=== PATIENT | male | born 1945 | race Caucasian/White ===

== ENCOUNTER 2019-05-02 05:41 | Emergency (ER) | payer MEDICARE, OTHER ==
[~2019-05-02] VITALS: Ht 180.3 cm; Wt 113.6 kg
[2019-05-02] MEDS ORDERED: VITAD1000T PO (05:50)
[2019-05-02] MEDS ORDERED: FINA5TAB2 PO (05:50)
[2019-05-02] MEDS ORDERED: ASPI81CH33 PO (05:50)
[2019-05-02] MEDS ORDERED: GLIP10TA PO (05:50)
[2019-05-02] MEDS ORDERED: ATEN50TA2 PO (05:50)
[2019-05-02] MEDS ORDERED: AMLO10TA5 PO (05:50)
[2019-05-02] MEDS ORDERED: AMIT-255 PO (05:50)
[2019-05-02] MEDS ORDERED: METF500T13 PO (05:50)
[2019-05-02] MEDS ORDERED: ATOR1TAB19 PO (05:50)
[2019-05-02] MEDS ORDERED: OMEP10CASR PO (05:50)
[2019-05-02] MEDS ORDERED: HYDR12.55 PO (05:50)
[2019-05-02 06:58] LABS: HEMATOCRIT 42.1 % (42.0-52.0); HEMOGLOBIN 14.8 g/dl (13.5-17.5); MEAN CORPUSCULAR HGB CONC 35.2 g/dl (32.0-36.5); MEAN CORPUSCULAR VOLUME 88.1 fl (80.0-96.0); PLATELET COUNT, AUTOMATED 141 10^3/uL (150-450); RED BLOOD COUNT 4.78 10^6/uL (4.30-6.10); WHITE BLOOD COUNT 5.3 10^3/uL (4.0-10.0)
--- NOTE | 2019-05-02 07:28 | REPVR ---
EXAM: CT Head Without Contrast EXAM DATE/TIME: 05/02/2019 6:53 AM CLINICAL HISTORY: 73 years old, male; Altered mental status/memory loss; Additional info: Altered mental, RO tumor TECHNIQUE: Imaging protocol: Computed tomography images of the head without contrast. Radiation optimization: All CT scans at this facility use at least one of these dose optimization techniques: automated exposure control; mA and/or kV adjustment per patient size (includes targeted exams where dose is matched to clinical indication); or iterative reconstruction. COMPARISON: No relevant prior studies available. FINDINGS: Brain: A focal CSF density extra-axial structure in the left middle cranial fossa is probably an arachnoid cyst, measuring 4.5 x 2.4 cm. There is mild mass effect upon the anterior aspect of the left temporal lobe but no associated parenchymal edema. There is mild, diffuse parenchymal volume loss. The cortical/white matter interfaces are preserved throughout the brain. Ventricles: The ventricular system demonstrates mild diffuse compensatory enlargement. Bones/joints: No acute fractures of the skull are identified. Sinuses: The visualized paranasal sinuses are clear. Mastoid air cells: The visualized mastoid air cells are clear. Soft tissues: Unremarkable. Vasculature: Atherosclerotic calcifications are seen in the cerebral arteries at the skull base. IMPRESSION: 1. No evidence of acute infarct or hemorrhage. 2. CSF density structure in the left middle cranial fossa, likely an incidental arachnoid cyst. Electronically signed by: Vivian Woodard On 05/02/2019 07:28:31 AM
[2019-05-02 07:46] LABS: ALBUMIN 3.2 GM/DL (3.2-5.2); BILIRUBIN,DIRECT 0.3 MG/DL (0.0-0.2); BILIRUBIN,TOTAL 1.1 MG/DL (0.2-1.0); TOTAL PROTEIN 7.9 GM/DL (6.4-8.2)
[2019-05-02 07:47] LABS: ACETAMINOPHEN LEVEL < 2.0 UG/ML (10.0-30.0); ALBUMIN 3.2 GM/DL (3.2-5.2); ALT/SGPT 29 U/L (12-78); BILIRUBIN,DIRECT 0.3 MG/DL (0.0-0.2); BILIRUBIN,TOTAL 1.1 MG/DL (0.2-1.0); BLOOD UREA NITROGEN 16 MG/DL (7-18); CALCIUM LEVEL 8.8 MG/DL (8.8-10.2); CARBON DIOXIDE LEVEL 28 MEQ/L (21-32); CHLORIDE LEVEL 104 MEQ/L (98-107); CK-MB VALUE MASS 1.7 NG/ML (<3.6); CPK CREATINE PHOSPHOKINASE 96 U/L (39-308); CREATININE FOR GFR 1.04 MG/DL (0.70-1.30); ETHYL ALCOHOL (ETHANOL) < 0.003 % (0.000-0.010); GLOMERULAR FILTRATION RATE > 60.0 (>42); GLUCOSE, FASTING 152 MG/DL (70-100); MB/CK RELATIVE INDEX 1.77 (< OR =4); POTASSIUM SERUM 3.6 MEQ/L (3.5-5.1); SALICYLATE LEVEL < 1.7 MG/DL (5.0-30.0); SODIUM LEVEL 140 MEQ/L (136-145); TOTAL PROTEIN 7.1 GM/DL (6.4-8.2); TROPONIN I < 0.02 NG/ML (< 0.10)
--- NOTE | 2019-05-02 08:09 | REP ---
Chest x-ray: Two views. History: Chest discomfort. Comparison chest x-ray: September 29, 2011. Findings: The lungs are symmetrically aerated and clear. Moderate cardiac enlargement is again noted unchanged. Pleural angles are sharp. No infiltrate is seen. Pulmonary vasculature is not increased. Impression: Cardiomegaly. Otherwise no acute disease. Electronically Signed by Issa Woods MD 05/02/2019 08:00 A
[2019-05-02 09:31] VITALS: BP 122/63
[2019-05-02 09:58] LABS: AMPHETAMINES LEVEL URINE NEGATIVE (NEGATIVE); BARBITURATES URINE NEGATIVE (NEGATIVE); BENZODIAZEPINES URINE NEGATIVE (NEGATIVE); CANNABINOIDS URINE NEGATIVE (NEGATIVE); COCAINE METABOLITE URINE NEGATIVE (NEGATIVE); METHADONE URINE NEGATIVE (NEGATIVE); OPIATES URINE NEGATIVE (NEGATIVE); PHENCYCLIDINE URINE NEGATIVE (NEGATIVE)
--- NOTE | 2019-05-02 20:39 | ECGEPIP ---
[facility] - ED Test Date: 2019-05-02 Pat Name: NIKUNJ JJ Department: Room: - Gender: Male Manager Enrollment: marisol : 1945 Requested By: ARMANDO Hendrix PA-C Order Number: [id number] Reading MD: Colin Arriaga Measurements Intervals [place] Rate: 70 P: 14 ID: [id number] QRS: -39 QRSD: 119 T: 6 QT: 424 QTc: 458 Interpretive Statements SINUS RHYTHM LEFT AXIS DEVIATION PATTERN CONSISTENT WITH PULMONARY DISEASE MODERATE INTRAVENTRICULAR CONDUCTION DELAY BENIGN EARLY REPOLARIZATION NO PRIORS FOR COMPARISON Electronically Signed on 05-02-2019 20:39:29 EDT by Colin Arriaga
--- NOTE | 2019-05-07 20:29 | ED PDOC ---
Post-Departure Follow-Up dr amy campbell faaxed formal report of ct head for fu Katelyn Carranza MD May 07, 2019 20:29
== END 2019-05-02 10:30 | disposition home or self-care (01) ==
LOC: M ED 05:41
DX: F51.5 Nightmare disorder (principal); R44.1 Visual hallucinations; R26.81 Unsteadiness on feet; I45.4 Nonspecific intraventricular block; I51.7 Cardiomegaly; E11.9 Type 2 diabetes mellitus without complications; I25.2 Old myocardial infarction; E78.5 Hyperlipidemia, unspecified; I10 Essential (primary) hypertension; R00.1 Bradycardia, unspecified; K21.9 Gastro-esophageal reflux disease without esophagitis; J44.9 Chronic obstructive pulmonary disease, unspecified; F32.9 Major depressive disorder, single episode, unspecified; F41.0 Panic disorder [episodic paroxysmal anxiety]; G47.30 Sleep apnea, unspecified; Z87.820 Personal history of traumatic brain injury; Z87.891 Personal history of nicotine dependence; Z82.49 Family history of ischemic heart disease and other diseases of the circulatory system; Z79.82 Long term (current) use of aspirin; Z79.84 Long term (current) use of oral hypoglycemic drugs; Z79.899 Other long term (current) drug therapy; Z88.2 Allergy status to sulfonamides
CPT/HCPCS: 70450; 71046; 80048; 80076; 80307; 81001; 82550; 82553; 83690; 84443; 84484; 85027; 93005; 99284; G0480

== ENCOUNTER → 2019-05-03 | Outpatient (CLI) | payer MEDICARE, OTHER ==
[~2019-05-03] MED LIST: AMIT-255 PO; AMLO10TA5 PO; ASPI81CH33 PO; ATEN50TA2 PO; ATOR1TAB19 PO; FINA5TAB2 PO; GLIP10TA PO; HYDR12.55 PO; METF500T13 PO; OMEP10CASR PO; VITAD1000T PO
[2019-05-03 13:46] LABS: RHEUMATOID FACTOR QUANT 75.3 IU/ML (<15.0)
[2019-05-03 13:48] LABS: VITAMIN B12 LEVEL 317 PG/ML
[2019-05-03 13:49] LABS: FOLATE 6.9 NG/ML
[2019-05-03 14:22] LABS: HEMOGLOBIN A1c 7.1 %
[2019-05-07 08:06] LABS: ANCA-ATYPICAL <1:20 titer (Neg:<1:20); ANTI DS-DNA AB <1:10 titer (.); ANTINUCLEAR ANTIBODIES DIRECT Negative (Negative); CERULOPLASMIN 18.3 mg/dL (16.0-31.0); COPPER PLASMA 72 ug/dL (72-166); CYTOPLASMIC NEUTROP AB ANCA-C <1:20 titer (Neg:<1:20); LEAD BLOOD ADULT <1 ug/dL (0-4); Lyme Disease IgG/IgM Antibodie <0.91 ISR (0.00-0.90); Lyme Disease IgM Ab Quantitati <0.80 index (0.00-0.79); MERCURY LEVEL None Detected ug/L (0.0-14.9); PERINUCLEAR AB ANCA-P <1:20 titer (Neg:<1:20); SJOGREN'S ANTI SS-A <0.2 AI (0.0-0.9); SJOGREN'S ANTI SS-B <0.2 AI (0.0-0.9); VITAMIN B6,PYRIDOXAL PHOSPHATE 2.6 ug/L (5.3-46.7); VITAMIN E(ALPHA TOCOPHEROL) 8.4 mg/L (9.0-29.0); VITAMIN E(GAMMA TOCOPHEROL) 1.5 mg/L (0.5-4.9)
[2019-05-10 10:20] LABS: DRVV SCREEN 40.6 SEC
== END ==
LOC: M WUC 10:41
PROVIDERS: ATTEND Psychiatry & Neurology Neurology
DX: M79.2 Neuralgia and neuritis, unspecified (principal)

== ENCOUNTER 2019-05-14 07:40 | Emergency (ER) | payer MEDICARE, OTHER ==
[~2019-05-14] VITALS: Ht 180.3 cm; Wt 111.4 kg
[~2019-05-14 07:40] MED LIST changes: +CHOL100029 PO; -VITAD1000T PO
[2019-05-14] MEDS ORDERED: ATOR40TA75 PO (07:52)
[2019-05-14 14:39] VITALS: BP 130/85
--- NOTE | 2019-05-14 15:46 | REPVR ---
EXAM: MR Head Without and With Contrast EXAM DATE/TIME: 05/14/2019 2:28 PM CLINICAL HISTORY: 73 years old, male; Abnormal findings; Abnormal radiologic findings of head/skull; Intracranial mass / space-occupying lesion; Patient HX: Patient did not receive contrast nor more than the t1 sequence due to becoming claustrophobic and refusing further scanning. ; Additional info: Left temporal arachnoid cyst vs tumor TECHNIQUE: Imaging protocol: MR of the head without and with intravenous contrast. COMPARISON: CT Head without contrast 05/02/2019 6:52 AM FINDINGS: Brain: An elliptical low T1 signal arachnoid cyst is observed anterior to the left temporal lobe measuring 22 x 44 mm on axial image 12 similar to the comparison CT. No acute intracranial process is identified on this limited T1 axial survey. Ventricles: Normal. No ventriculomegaly. Bones/joints: Unremarkable. Soft tissues: Normal. Sinuses: Normal as visualized. No acute sinusitis. Mastoid air cells: Normal as visualized. No mastoid effusion. Orbits: Unremarkable. IMPRESSION: 1. An elliptical low T1 signal arachnoid cyst is observed anterior to the left temporal lobe measuring 22 x 44 mm on axial image 12 similar to the comparison CT. 2. No acute intracranial process is identified on this limited T1 axial survey. Electronically signed by: Kevin Bridges On 05/14/2019 15:45:58 PM
== END 2019-05-14 14:42 | disposition home or self-care (01) ==
LOC: M ED 07:40
DX: R29.818 Other symptoms and signs involving the nervous system (principal); G93.0 Cerebral cysts; Z91.81 History of falling; E11.9 Type 2 diabetes mellitus without complications; I10 Essential (primary) hypertension; I25.2 Old myocardial infarction; E78.00 Pure hypercholesterolemia, unspecified; G47.33 Obstructive sleep apnea (adult) (pediatric); F32.9 Major depressive disorder, single episode, unspecified; F41.9 Anxiety disorder, unspecified; Z95.5 Presence of coronary angioplasty implant and graft; Z87.891 Personal history of nicotine dependence; Z88.2 Allergy status to sulfonamides; Z79.899 Other long term (current) drug therapy; Z79.84 Long term (current) use of oral hypoglycemic drugs; Z79.82 Long term (current) use of aspirin

== ENCOUNTER 2019-08-12 12:54 | Inpatient (IN) | payer MEDICARE, OTHER ==
[~2019-08-12] VITALS: Ht 182.9 cm; Wt 116.2 kg
[~2019-08-12 12:54] MED LIST changes: +ATOR40TA75 PO
[2019-08-12] MEDS ORDERED: FURO20TA2 PO (13:28)
[2019-08-12] MEDS ORDERED: GABA-843 PO (13:28)
[2019-08-12 14:25] LABS: BASO % 0.6 % (0.0-1.0); EOS % 0.4 % (0.0-3.0); HEMATOCRIT 41.6 % (42.0-52.0); HEMOGLOBIN 14.3 g/dl (13.5-17.5); LYMPH # 0.8 10^3/uL (1.5-5.0); LYMPH % 15.8 % (24.0-44.0); MEAN CORPUSCULAR HGB CONC 34.4 g/dl (32.0-36.5); MEAN CORPUSCULAR VOLUME 87.2 fl (80.0-96.0); MONO # 0.3 10^3/uL (0.0-0.8); MONO % 6.2 % (0.0-5.0); NEUTROPHILS # 4.1 10^3/uL (1.5-8.5); NEUTROPHILS % 76.8 % (36.0-66.0); PLATELET COUNT, AUTOMATED 154 10^3/uL (150-450); RED BLOOD COUNT 4.77 10^6/uL (4.30-6.10); WHITE BLOOD COUNT 5.3 10^3/uL (4.0-10.0)
[2019-08-12 14:55] LABS: ALBUMIN 3.4 GM/DL (3.2-5.2); ALT/SGPT 39 U/L (12-78); BILIRUBIN,DIRECT 0.3 MG/DL (0.0-0.2); BILIRUBIN,TOTAL 1.4 MG/DL (0.2-1.0); BLOOD UREA NITROGEN 17 MG/DL (7-18); CALCIUM LEVEL 9.5 MG/DL (8.8-10.2); CARBON DIOXIDE LEVEL 27 MEQ/L (21-32); CHLORIDE LEVEL 104 MEQ/L (98-107); CPK CREATINE PHOSPHOKINASE 159 U/L (39-308); CREATININE FOR GFR 1.15 MG/DL (0.70-1.30); GLOMERULAR FILTRATION RATE > 60.0 (>42); GLUCOSE, FASTING 187 MG/DL (70-100); MB/CK RELATIVE INDEX 1.26 (< OR =4); POTASSIUM SERUM 3.1 MEQ/L (3.5-5.1); SODIUM LEVEL 139 MEQ/L (136-145); TOTAL PROTEIN 8.2 GM/DL (6.4-8.2); TROPONIN I < 0.02 NG/ML (< 0.10)
--- NOTE | 2019-08-12 15:05 | REP ---
CT brain: 08/12/2019. Indication: Stroke. Comparison: MRI brain dated 05/14/2019. Technique: Unenhanced axial CT images of the brain were obtained from skull base to vertex. Findings: There is no acute intracranial hemorrhage, acute cortical infarction or hydrocephalous. Left middle cranial fossa arachnoid cyst remains stable. There is no acute calvarial fracture. The visualized paranasal sinuses/mastoid air cells are clear. Impression: No acute intracranial process. Stable left middle cranial fossa arachnoid cyst. Electronically Signed by Manuelito Hinson DO 08/12/2019 02:56 P
[2019-08-12] MEDS ORDERED: METF-791 PO (17:24)
[2019-08-12] MEDS ORDERED: FINA5TAB2 PO (17:24)
[2019-08-12] MEDS ORDERED: LANTINJ4 SC (17:24)
[2019-08-12] MEDS ORDERED: IBUP1TAB6 PO (17:24)
[2019-08-12] MEDS ORDERED: ASPI81TA26 PO (17:24)
[2019-08-12] MEDS ORDERED: OMEP20CA4 PO (17:24)
[2019-08-12] MEDS ORDERED: LORazepam 2 MG/ML VIAL (J2060) IV STA (17:30)
[2019-08-12] MEDS ORDERED: POTASSIUM CHLORIDE 10 MEQ SR TABLET PO ONE (17:45)
[2019-08-12] MEDS ORDERED: DEXTROSE 50% 50 ML SYRINGE IV PRN (17:45)
[2019-08-12] MEDS ORDERED: GLUCOSE 4 GM CHEW TABLET PO PRN (17:45)
[2019-08-12] MEDS ORDERED: GLUCAGON FOR INJ 1 MG VIAL (J1610) SC PRN (17:45)
[2019-08-12 18:41] VITALS: BP 150/70
[2019-08-12] MEDS: CLOPIDOGREL 75 MG TAB PO SCH (18:47)
[2019-08-12 20:00] VITALS: BP 146/80
--- NOTE | 2019-08-12 20:19 | REPVR ---
PROCEDURE INFORMATION: Exam: US Duplex Bilateral Extracranial Arteries Exam date and time: 08/12/2019 7:55 PM Age: 74 years old Clinical history: Other: TIA TECHNIQUE: Imaging protocol: Real-time Duplex ultrasound scan of the bilateral carotid and vertebral arteries combining guzman scale, color Doppler and spectral waveform analysis. Bilateral exam. COMPARISON: No relevant prior studies available. FINDINGS: Right common carotid artery: Unremarkable. No occlusion or stenosis. Waveforms are normal. Right internal carotid artery: Mild mixed calcific and noncalcific atherosclerotic changes. No occlusion or stenosis. Waveforms are normal. Right ICA/CCA ratio: Within normal limits. 0.4 Right external carotid artery: No stenosis in the origin. Right vertebral artery: Not visualized. Left common carotid artery: Unremarkable. No occlusion or stenosis. Waveforms are normal. Left internal carotid artery: Mild mixed calcific and noncalcific atherosclerotic changes. No occlusion or stenosis. Waveforms are normal. Left ICA/CCA ratio: Within normal limits. 0.98 Left external carotid artery: No stenosis in the origin. Left vertebral artery: Unremarkable. Antegrade flow. IMPRESSION: Mild bilateral stenosis in the proximal ICA's using SRU criteria. Nonvisualized right vertebral artery. Normal antegrade flow on the left. COMMENT: Carotid Stenosis Reference using SRU criteria: Mild: less than 50% stenosis. ICA PSV is less than 125 cm/second and plaque or intimal thickening is visible. Moderate: 50-69% stenosis. ICA PSV is 125 to 230 cm/second and plaque is visible. Severe: 70-94% stenosis. ICA PSV is more than 230 cm/second and visible plaque and lumen narrowing are seen. Near occlusion: 95-99% stenosis. ICA PSV is variable and significant plaque and luminal narrowing are seen. Occluded: 100% stenosis. No flow identified. Electronically signed by: Rivas Cho On 08/12/2019 20:19:45 PM
[2019-08-12] MEDS: AMITRIPTYLINE 25 MG TAB PO SCH (20:53)
[2019-08-12] MEDS: ASPIRIN 81 MG ENTERIC TAB PO SCH (20:53)
[2019-08-12] MEDS: OMEPRAZOLE 20 MG CAP PO SCH (20:54)
[2019-08-12] MEDS: ATORVASTATIN 20 MG TAB PO SCH (20:54)
[2019-08-12] MEDS: FUROSEMIDE 20 MG TAB PO SCH (20:54)
[2019-08-12] MEDS: amLODIPine 5 MG TAB PO SCH (20:54)
[2019-08-12] MEDS: ATENOLOL 50 MG TAB PO SCH (20:55)
[2019-08-12] MEDS: FINASTERIDE 5 MG TAB PO SCH (20:55)
[2019-08-12] MEDS: HumaLOG INSULIN (NovoLOG) PER UNIT SC SCH (20:55)
[2019-08-12] MEDS: VITAMIN D 1,000 INTERNATIONAL UNITS TABLET PO SCH (20:55)
[2019-08-12] MEDS: LEVEMIR (INSULIN DETEMIR) 1 UNITS/0.01ML SC SCH (20:56)
--- NOTE | 2019-08-12 20:57 | HPE ---
DATE OF ADMISSION: 08/12/2019 PRIMARY CARE PROVIDER: [facility] PRINCIPAL DIAGNOSIS: Transient ischemic attack (TIA) versus stroke. HISTORY: Helder Garcia is a 74-year-old right-handed male with multiple vascular risk factors. He has been "weak in his knees" for several days, having trouble ambulating, and has been increasing lower extremity edema for several months, being attended to by the ID with augmented doses of the diuretics. Today, his legs were weaker than usual. He tried to walk and his thought he was going to fall down. When he sat down, his right upper extremity became weak and he was unable to hold anything. He dropped the cup he was holding and was unable to use his hand to write his name. His speech was dysarthric. This all lasted over an hour, perhaps two hours. Symptoms resolved by the time an ambulance was called a few hours into this event. In the emergency room, he was normotensive and had only findings on neurologic examination. He is being admitted for further treatment. He has no past history of transient ischemic attack (TIA) or stroke. He is on antiplatelet therapy with aspirin 81 mg daily. PAST MEDICAL HISTORY: 1. Hypertensive heart disease. 2. Vitamin D deficiency. 3. Hyperlipidemia. 4. Chronic lower extremity edema versus congestive heart failure. 5. Type 2 diabetes. 6. Gastroesophageal (GE) reflux. 7. Benign prostatic hypertrophy (BPH). PAST SURGICAL HISTORY: Bilateral knee surgery as well as surgery on the right shoulder. He also had shrapnel removed from his right leg. FAMILY HISTORY: Noncontributory. SOCIAL HISTORY: He is . He does not smoke. He does not drink alcohol but says "today I wish I did." REVIEW OF SYSTEMS: No epistaxis, rectal bleeding, urinary bleeding, headache, diplopia. No past history of transient ischemic attack (TIA) or cerebrovascular accident (CVA). PHYSICAL EXAMINATION: Blood pressure 128/69, pulse 74, 98% oxygen saturation on room air, afebrile. GENERAL APPEARANCE: Alert, conversant, in no distress. No facial droop or weakness. Pupils are equally round and reactive to light. Tympanic membranes and oropharynx benign. NECK: No masses. carotid bruits. LUNGS: Clear. HEART: Regular rate and rhythm, 1/6 systolic ejection murmur. ABDOMEN: Soft, nontender. No masses. EXTREMITIES: No clubbing or cyanosis, 1+ peripheral edema bilaterally. Pulses were palpable in both feet, 2+, equal at the carotid site. No axillary, cervical, or inguinal adenopathy. Thyroid nonpalpable. No diagnostic skin rashes. NEUROLOGIC: Alert and oriented, conversant, answer are appropriate and goal-directed. There is no strabismus. Cranial nerves II-XII are intact. Strength is slightly reduced in the right upper extremity 4+ over 5 to the triceps. He has slight weakness in his right lower extremity, dorsiflexing and plantar flexing the foot. Speech appears normal to me but the family members think it is still slightly dysarthric. He has no aphasia. No trouble naming or word finding. Sensation intact to light touch. Reflexes are symmetric and normal bilaterally. I did not test his gait. LABORATORY DATA: CT of the brain showed no bleed. Previous MRI of the brain was done on 05/14/2019 for generalized weakness. They noticed an arachnoid cyst anterior left temporal lobe, so that is a known previous finding. EKG showed no change from prior. He was in sinus rhythm. White count 5.3, hemoglobin 14.3, platelets 154. 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 IMPRESSION: 1. Transient ischemic attack (TIA) versus stroke. The patient will be admitted to a telemetry bed. We will check echocardiogram and carotid ultrasound. MRI of the brain is pending. We will augment his aspirin 81 mg daily with Plavix 75 mg daily. We will put him on telemetry to rule out a paroxysmal atrial fibrillation. We will order physical therapy. The case was discussed with multiple family members. 2. Type 2 diabetes. Hold his metformin and glipizide for now. Sliding scale insulin, fingerstick blood sugars ordered. Reduce his basal insulin in the face of enforced diabetic diet to avoid hypoglycemia. 3. Hyperlipidemia. Increase atorvastatin to 40 mg daily in the face of today's vascular event. Dietary approaches to stop hypertension (DASH) diet has been ordered. 4. Lower extremity edema. Echocardiogram ordered to check ejection fraction as well as part of the stroke workup. Continue his furosemide for now. 5. Hypertension. Continue his atenolol. Reduce dose of amlodipine to 5 mg daily to allow some permissive hypertension in the face of the current vascular event. Hold his hydrochlorothiazide for now in the face of the recent TIA/stroke. 6. Gastroesophageal reflux disease (GERD). Continue omeprazole 20 mg daily. 7. Benign prostatic hypertrophy (BPH). Continue finasteride 5 mg daily. Encourage ambulation to avoid urinary retention. 8. Hypokalemia. Supplemental potassium has been ordered. 9. Deep vein thrombosis (DVT) prophylaxis with Lovenox has been ordered.
[2019-08-13] VITALS: BP 143/81
[2019-08-13 04:00] VITALS: BP 140/70
[2019-08-13 05:39] LABS: HEMATOCRIT 36.7 % (42.0-52.0); HEMOGLOBIN 12.8 g/dl (13.5-17.5); MEAN CORPUSCULAR HEMOGLOBIN 29.9 pg (27.0-33.0); MEAN CORPUSCULAR HGB CONC 34.9 g/dl (32.0-36.5); MEAN CORPUSCULAR VOLUME 85.7 fl (80.0-96.0); PLATELET COUNT, AUTOMATED 141 10^3/uL (150-450); RED BLOOD COUNT 4.28 10^6/uL (4.30-6.10); WHITE BLOOD COUNT 5.1 10^3/uL (4.0-10.0)
[2019-08-13 06:04] LABS: BLOOD UREA NITROGEN 19 MG/DL (7-18); CALCIUM LEVEL 8.9 MG/DL (8.8-10.2); CARBON DIOXIDE LEVEL 29 MEQ/L (21-32); CHLORIDE LEVEL 107 MEQ/L (98-107); CREATININE FOR GFR 0.98 MG/DL (0.70-1.30); GLOMERULAR FILTRATION RATE > 60.0 (>42); GLUCOSE, FASTING 138 MG/DL (70-100); POTASSIUM SERUM 3.2 MEQ/L (3.5-5.1); SODIUM LEVEL 142 MEQ/L (136-145)
--- NOTE | 2019-08-13 06:38 | ECGEPIP ---
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
[2019-08-13 08:00] VITALS: BP 134/71
[2019-08-13] MEDS: CLOPIDOGREL 75 MG TAB PO SCH (08:25)
[2019-08-13] MEDS: POTASSIUM CHLORIDE 10 MEQ SR TABLET PO SCH ×3 (08:25→20:52)
[2019-08-13] MEDS: ENOXAPARIN 40 MG/0.4 ML SYRINGE (J1650) SC SCH (08:25)
[2019-08-13] MEDS: HumaLOG INSULIN (NovoLOG) PER UNIT SC SCH ×4 (08:26→20:02)
[2019-08-13] MEDS ORDERED: POTASSIUM CHLORIDE 10 MEQ SR TABLET PO SCH (09:00)
--- NOTE | 2019-08-13 10:50 | IPN ---
DATE: 08/13/2019 Helder is seen in the progressive care unit (PCU). His speech is back to baseline. His right upper extremity weakness is almost completely resolved. He had no headaches. No chest pain or shortness of breath, or palpitation. He has been in strict sinus rhythm overnight and his carotid ultrasound showed no stenoses. MRI scan is contingent on radiology reviewing his history of retained shrapnel, which I do not think should be a problem as he had a brain MRI on 05/14/2019. But they are still holding up the MRI for some reason. PHYSICAL EXAMINATION: Blood pressure 134/71, afebrile. Vital signs stable. Lungs: Clear. Heart: Regular rhythm. 09/26 systolic ejection murmur. Abdomen soft, nontender. No masses. No peripheral edema. Neural exam shows alert, conversant in no distress. Speech is fluent. Cranial nerves II through XII intact. Strength is back to normal in the right upper and lower extremity. LABS: CBC unremarkable. CMP unremarkable except for potassium 3.2. Carotid ultrasound showed no stenoses. IMPRESSION: 1. Transient ischemic attack (TIA) versus stroke: Waiting for MRI scan. They would not do this yesterday because he has shrapnel despite the fact he did tolerate an MRI scan 05/14/2019. Neurology has been consulted. I added Plavix 75 mg daily to his aspirin 81 mg daily yesterday. Deep venous thrombosis prophylaxis has been ordered. 2. Diabetes: He is on a reduced dose of Levemir and a sliding scale of insulin. 3. Hypertension: I have reduced his antihypertensives and blood pressure remains in the target range. 4. Lower extremity edema: Echocardiogram is pending. Ejection fraction is pending. Continue Furosemide for now. Some of that edema might have been from high dose of amlodipine he was receiving. 5. Benign prostatic hypertrophy( BPH): No sign of urinary retention. 6. Hypokalemia: Continue supplemental potassium. Case discussed extensively with the patient and his .
[2019-08-13 12:00] VITALS: BP 120/72
[2019-08-13] MEDS ORDERED: DOCUSATE SODIUM 100 MG CAP PO PRN (12:00)
[2019-08-13] MEDS ORDERED: MIRALAX *UNIT DOSE* 17GM PACKET PO PRN (12:00)
[2019-08-13] MEDS ORDERED: LORazepam 1 MG TAB PO ONE (13:45)
--- NOTE | 2019-08-13 15:31 | REPVR ---
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 COMPARISON: MRI-Brain without Contrast 05/14/2019 1:38 PM FINDINGS: Brain: There is a midline punctate focus of high signal abnormality within the splenium of the corpus callosum on the diffusion sequence consistent with an acute infarct. 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 There are scattered nonspecific foci of high signal abnormality in the guzman radiata and centrum semiovale. These are best seen on the flair images. These foci may represent areas of gliosis, demyelination, and/or chronic ischemic change. Ventricles: Normal. No ventriculomegaly. Bones/joints: Unremarkable. Soft tissues: Unremarkable. Sinuses: Normal as visualized. No acute sinusitis. Mastoid air cells: Normal as visualized. No mastoid effusion. Orbits: Unremarkable. IMPRESSION: 1. There is a midline punctate focus of high signal abnormality within the splenium of the corpus callosum on the diffusion sequence consistent with an acute infarct. 2. 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 3. There are scattered nonspecific foci of high signal abnormality in the guzman radiata and centrum semiovale. These are best seen on the flair images. These foci may represent areas of gliosis, demyelination, and/or chronic ischemic change. Electronically signed by: Jet Etienne On 08/13/2019 15:30:45 PM
--- NOTE | 2019-08-13 15:50 | REPVR ---
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 Exam focused on the arteries. 3D rendering: MIP reconstructed images were created and reviewed. COMPARISON: MRI-Brain without Contrast 05/14/2019 1:38 PM FINDINGS: Right internal carotid artery: Unremarkable. Intracranial segment is patent with no significant stenosis. No aneurysm. Right anterior cerebral artery: Unremarkable. No occlusion or significant stenosis. No aneurysm. Right middle cerebral artery: Unremarkable. No occlusion or significant stenosis. No aneurysm. Right posterior cerebral artery: Unremarkable. No occlusion or significant stenosis. No aneurysm. Right vertebral artery: The right intracranial vertebral artery is not visualized, likely a normal variant. Left internal carotid artery: Unremarkable. Intracranial segment is patent with no significant stenosis. No aneurysm. Left anterior cerebral artery: Unremarkable. No occlusion or significant stenosis. No aneurysm. Left middle cerebral artery: Unremarkable. No occlusion or significant stenosis. No aneurysm. Left posterior cerebral artery: There is a origin of the left posterior cerebral artery. Left vertebral artery: Unremarkable. No occlusion or significant stenosis. No aneurysm. Basilar artery: Unremarkable. No occlusion or significant stenosis. No aneurysm. IMPRESSION: No acute findings are identified. Please refer to contemporaneous MRI report of the brain for additional details. Electronically signed by: Jet Etienne On 08/13/2019 15:50:02 PM
[2019-08-13 16:00] VITALS: BP 120/80
[2019-08-13 20:00] VITALS: BP 156/77
[2019-08-13] MEDS: LEVEMIR (INSULIN DETEMIR) 1 UNITS/0.01ML SC SCH (20:51)
[2019-08-13] MEDS: FUROSEMIDE 20 MG TAB PO SCH (20:52)
[2019-08-13] MEDS: AMITRIPTYLINE 25 MG TAB PO SCH (20:52)
[2019-08-13] MEDS: FINASTERIDE 5 MG TAB PO SCH (20:52)
[2019-08-13] MEDS: ATORVASTATIN 20 MG TAB PO SCH (20:52)
[2019-08-13] MEDS: ASPIRIN 81 MG ENTERIC TAB PO SCH (20:52)
[2019-08-13] MEDS: amLODIPine 5 MG TAB PO SCH (20:52)
[2019-08-13] MEDS: OMEPRAZOLE 20 MG CAP PO SCH (20:53)
[2019-08-13] MEDS: VITAMIN D 1,000 INTERNATIONAL UNITS TABLET PO SCH (20:53)
[2019-08-13] MEDS: ATENOLOL 50 MG TAB PO SCH (20:53)
[2019-08-14] VITALS (7 sets, daily range): BP systolic 115–122; BP diastolic 61–70
[2019-08-14 04:47] LABS: HEMATOCRIT 36.6 % (42.0-52.0); HEMOGLOBIN 12.5 g/dl (13.5-17.5); MEAN CORPUSCULAR HGB CONC 34.2 g/dl (32.0-36.5); PLATELET COUNT, AUTOMATED 116 10^3/uL (150-450); RED BLOOD COUNT 4.16 10^6/uL (4.30-6.10); WHITE BLOOD COUNT 4.2 10^3/uL (4.0-10.0)
[2019-08-14 05:07] LABS: BLOOD UREA NITROGEN 20 MG/DL (7-18); CALCIUM LEVEL 8.7 MG/DL (8.8-10.2); CARBON DIOXIDE LEVEL 27 MEQ/L (21-32); CHLORIDE LEVEL 108 MEQ/L (98-107); CREATININE FOR GFR 0.98 MG/DL (0.70-1.30); GLOMERULAR FILTRATION RATE > 60.0 (>42); GLUCOSE, FASTING 111 MG/DL (70-100); POTASSIUM SERUM 3.8 MEQ/L (3.5-5.1); SODIUM LEVEL 141 MEQ/L (136-145)
--- NOTE | 2019-08-14 08:21 | ECHO ---
DATE OF PROCEDURE: 08/12/2019 REFERRING PHYSICIAN: Dr. Jonathon Everett INDICATION: Transient cerebral ischemia unspecified. HEIGHT: 183 cm WEIGHT: 111 kg 2D MEASUREMENTS: Ventricular septum: 1.21 cm Posterior wall: 1.19 cm Left ventricle diastole: 4.9 cm LVOT: 2.2 cm Aortic root: 3.4 cm Left atrium: 3.5 cm Inferior vena cava: 1.9 cm DOPPLER MEASUREMENTS: Aortic valve velocity: 219 cm/s LVOT velocity: 97.3 cm/s LVOT VTI: 25.2 cm No aortic regurgitation. No aortic stenosis. No mitral regurgitation. No tricuspid regurgitation. No pulmonic regurgitation. Mitral E velocity: 85.7 cm/s Mitral A velocity: 114 cm/s Mitral deceleration time: 289 ms Pulmonary acceleration time: 148 milliseconds MITRAL ANNULAR TISSUE DOPPLER: E prime septal: 7.3 cm/s E prime lateral: 6.0 cm/s DESCRIPTION: Rhythm was sinus. This was a moderately technically difficult echocardiogram. No pericardial effusion. This was a 2D, M-mode, color flow Doppler and pulse wave Doppler examination and included mitral annular tissue Doppler. CONCLUSIONS: 1. Borderline concentric left ventricular hypertrophy. Normal regional LV wall motion and wall thickening. Normal LV systolic function. Left ventricular ejection fraction 60% by visual estimate. Grade 1 LV diastolic dysfunction. 2. Moderate mitral annular calcification. No mitral stenosis. No mitral regurgitation. 3. 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 No aortic stenosis or regurgitation. 4. Moderately technical difficult echocardiogram.
[2019-08-14] MEDS: CLOPIDOGREL 75 MG TAB PO SCH (08:40)
[2019-08-14] MEDS: POTASSIUM CHLORIDE 10 MEQ SR TABLET PO SCH ×3 (08:41→21:31)
[2019-08-14] MEDS: HumaLOG INSULIN (NovoLOG) PER UNIT SC SCH ×4 (08:41→21:00)
[2019-08-14] MEDS: ENOXAPARIN 40 MG/0.4 ML SYRINGE (J1650) SC SCH (08:41)
--- NOTE | 2019-08-14 11:23 | IPN ---
DATE: 08/14/2019 Helder is seen in progressive care unit (PCU). He has had no arrhythmias. His MRI showed a lacunar stroke (educational material on lacunar stroke and a copy of the MRI report to give to his [employer] physician was given to the patient yesterday). His echocardiogram showed normal left atrial size. Ejection fraction is 60%. No significant valvular disease. Aortic sclerosis without stenosis. He was seen by neurology, awaiting their report. Physical therapy does not feel that he is ready for discharge due to leg weakness. PHYSICAL EXAMINATION: Afebrile. Vital signs stable. 118/69. He is alert, conversant, no distress. LUNGS: Clear. HEART: Regular rhythm. 6 systolic ejection murmur. ABDOMEN: Soft, nontender. No masses. EXTREMITIES: No peripheral edema. Normal strength in the upper extremities. Normal strength in the lower extremities. LABORATORIES: CBC unremarkable. Chem profile unremarkable. Blood sugars have been normal. IMPRESSION AND PLAN: 1. Lacunar stroke. Information has been given to the patient. He is on Plavix now, as well as aspirin. His blood pressure remains well controlled on atenolol 50 mg daily and reduced dose of amlodipine 5 mg daily. Aspirin 81 mg daily and Plavix 75 mg daily. Physical therapy (PT) has been ordered. He will be discharged once he is cleared by physical therapy (PT), hopefully that will be tomorrow. 2. Hyperlipidemia. Lipitor is increased to 40 mg daily upon admission. We will continue this dose in the face of the recent stroke, though it was a lacunar stroke, which falls outside of the AHA/ACC hyperlipidemia guidelines. 3. Diabetes. He is on a reduced dose of Detemir and his oral agents have been held. We will restart his metformin today. 5. Benign prostatic hypertrophy (BPH). No sign of urinary retention. 6. Lower extremity edema. Ejection fraction is normal. He is on furosemide. Some of the edema is probably from the high dose amlodipine he was receiving. 7. Hypokalemia. We are finally making some progress with potassium, it is up to normal range on oral replacement.
--- NOTE | 2019-08-14 18:40 | CR ---
DATE OF CONSULTATION: 08/14/2019 REFERRING PROVIDER: Jonathon Everett MD Helder Garcia was seen in consultation for suspicion of transient ischemic attack (TIA) versus stroke. HISTORY OF PRESENT ILLNESS: The patient is a 74-year-old right-handed male with past medical history significant for hypertension, hyperlipidemia, type 2 diabetes with symptoms of sudden weakness of the right arm, right leg and slurring of speech, difficulty speaking lasting approximately 1 to 2 hours. The patient had a fall as a result of the symptoms. He normally has been having some difficulty with unsteady gait over the last 3 to 4 months it seems. He has longstanding history of low back pain. He has peripheral neuropathy symptoms and has had lumbar pain with radicular pain to his left leg more than right. The patient did have a head CT which was negative. MRI of the brain reveals what has been read in documentation as an acute stroke of the posterior corpus callosal. The patient's imaging shows hyperintensity and DWI sequences; however, on ADC mapping there is no correlate hypointensity. This raises the suspicion of possible subacute stroke. The patient either way was on aspirin 81 mg daily before the admission and was placed on Plavix and aspirin combination. MR angiogram of the brain does not reveal any large vessel occlusion or stenosis. The patient should be switched to Plavix only. He should maintain a statin therapy and optimizing his diabetes and hypertension, hyperlipidemia. Physical therapy (PT) and occupational therapy (OT) evaluation can be obtained. The patient has stated that he has normal strength in his arms and legs again. He has subtle weakness in both ankle dorsiflexion, which is his baseline likely contributing towards unsteady gait. He denies any chest pain, shortness of breath, headache, dizziness, blurred vision, vertigo, dysarthria, aphasia at this time. REVIEW OF SYSTEMS: 14-point review of systems obtained and is negative except as per history of present illness. PAST MEDICAL HISTORY: 1. Hypertension. 2. Hyperlipidemia 3. Type 2 diabete. 4. Congestive heart failure with chronic lower extremity edema. 5. Vitamin D deficiency. 6. Benign prostatic hypertrophy 7. Gastroesophageal reflux disease PAST SURGICAL HISTORY: Bilateral knee surgery and right shoulder. shrapnel removed from right leg. FAMILY HISTORY: Noncontributory. SOCIAL HISTORY: The patient denies use of tobacco, alcohol or illicit drugs. PHYSICAL EXAMINATION: Blood pressure is 120/80, pulse rate is 70, respiratory rate is 18, temperature is 95% on room air. Current temperature is 98.2 degrees Fahrenheit, oxygenation is 95% on room air. Current height is 6 feet 0 inches. Current weight is 115 kg. The patient is awake, alert, oriented to person, place and time. Speech, language, comprehension and repetition appear to be intact without nystagmus. Sensation V1-V2, V3I is intact light touch. No facial asymmetry activation, palate elevates symmetrically. Tongue is midline. There is no weakness of sternocleidomastoids bilaterally. Romberg testing completed and is negative. The patient has no pronator drift. Strength is 5- in bilateral deltoids with prior rotator cuff injuries 5/5 in bilateral biceps and triceps, iliopsoas of 5-, quadriceps are 5/5 and tibialis anterior 4+ bilaterally. Sensation intact to light touch in all four extremities. Coordination without any masorm-ma-povm ataxia. Deep tendon reflexes are reduced in the lower extremities, the ankles on the right it is absent, on the left it is trace, at the patellas they are absent, in the upper extremity there are 2+. Babinski signs are absent. ASSESSMENT: 1. 74-year-old male with sudden onset right arm and leg weakness with difficulty with speech, probable transient ischemic attack (TIA). Magnetic Resonance Imaging (MRI) evidence of a stroke likely subacute, reading radiologist reported acute stroke. Nonetheless recommend optimization of hypertension, hyperlipidemia, diabetes. Recommend continuation of Plavix 75 mg daily, discontinuation of aspirin. Recommend continuation of statin therapy, atorvastatin 40 mg daily. 2. Continue telemetry monitoring. Recommend physical therapy (PT)/occupational therapy (OT) evaluation. The patient can followup as an outpatient in the neurology clinic. History obtained from both the patient and the patient's son and [id number].
[2019-08-14] MEDS ORDERED: metFORMIN XR 500MG TAB *GLUCOPHAGE XR PO SCH (21:00)
[2019-08-14] MEDS: OMEPRAZOLE 20 MG CAP PO SCH (21:32)
[2019-08-14] MEDS: FUROSEMIDE 20 MG TAB PO SCH (21:32)
[2019-08-14] MEDS: ATENOLOL 50 MG TAB PO SCH (21:32)
[2019-08-14] MEDS: ATORVASTATIN 20 MG TAB PO SCH (21:32)
[2019-08-14] MEDS: amLODIPine 5 MG TAB PO SCH (21:33)
[2019-08-14] MEDS: AMITRIPTYLINE 25 MG TAB PO SCH (21:33)
[2019-08-14] MEDS: ASPIRIN 81 MG ENTERIC TAB PO SCH (21:33)
[2019-08-14] MEDS: FINASTERIDE 5 MG TAB PO SCH (21:33)
[2019-08-14] MEDS: VITAMIN D 1,000 INTERNATIONAL UNITS TABLET PO SCH (21:33)
[2019-08-14] MEDS: LEVEMIR (INSULIN DETEMIR) 1 UNITS/0.01ML SC SCH (21:34)
[2019-08-15] VITALS: BP 122/67
[2019-08-15] MEDS ORDERED: ACETAMINOPHEN TAB 650MG DOSE (2X325MG) PO PRN (01:15)
[2019-08-15 04:00] VITALS: BP 119/68
[2019-08-15 08:00] VITALS: BP_SYST 139; BP_SYST 144; BP_DIAS 77; BP_DIAS 80
[2019-08-15] MEDS: POTASSIUM CHLORIDE 10 MEQ SR TABLET PO SCH (08:02)
[2019-08-15] MEDS: ENOXAPARIN 40 MG/0.4 ML SYRINGE (J1650) SC SCH (08:02)
[2019-08-15] MEDS: CLOPIDOGREL 75 MG TAB PO SCH (08:02)
[2019-08-15] MEDS: HumaLOG INSULIN (NovoLOG) PER UNIT SC SCH (08:03)
[2019-08-15 08:07] LABS: BLOOD UREA NITROGEN 22 MG/DL (7-18); CALCIUM LEVEL 8.6 MG/DL (8.8-10.2); CARBON DIOXIDE LEVEL 24 MEQ/L (21-32); CHLORIDE LEVEL 110 MEQ/L (98-107); CREATININE FOR GFR 1.01 MG/DL (0.70-1.30); GLOMERULAR FILTRATION RATE > 60.0 (>42); GLUCOSE, FASTING 112 MG/DL (70-100); POTASSIUM SERUM 4.7 MEQ/L (3.5-5.1); SODIUM LEVEL 141 MEQ/L (136-145)
[2019-08-15 08:43] LABS: HEMATOCRIT 37.8 % (42.0-52.0); HEMOGLOBIN 12.6 g/dl (13.5-17.5); MEAN CORPUSCULAR HEMOGLOBIN 29.9 pg (27.0-33.0); MEAN CORPUSCULAR HGB CONC 33.3 g/dl (32.0-36.5); MEAN CORPUSCULAR VOLUME 89.6 fl (80.0-96.0); PLATELET COUNT, AUTOMATED 124 10^3/uL (150-450); RED BLOOD COUNT 4.22 10^6/uL (4.30-6.10); WHITE BLOOD COUNT 3.9 10^3/uL (4.0-10.0)
--- NOTE | 2019-08-15 11:02 | IPN ---
DATE: 08/15/2019 Helder is seen in PCU. He is out ambulating in the hallway. He had a lacunar stroke and he has recovered from this. Unfortunately, he is deconditioned and is going to require some rehabilitation. I met with the patient's today and she feels that she cannot take care of him at home until he is able to go up some stairs and ambulate better. He denies any chest pain, shortness of breath, focal weakness or aphasia. PHYSICAL EXAMINATION: 124/77, pulse 65, respiratory rate 20, 95% oxygen saturation. He is walking in the hallway with a walker, it is difficult for him. No facial droop or weakness. Normal strength in the arms and legs. Lungs clear. Heart regular rhythm. Trace peripheral edema. LABS: CBC, BMP unremarkable. IMPRESSION: 1. Lacunar stroke. Neurology consultation appreciated. They recommend stopping the aspirin and treating with Plavix as monotherapy. 2. Hypertensive heart disease. Blood pressure is well controlled on current regimen. 3. Diabetes. Refilled his metformin yesterday. His blood sugars have been down around 100. His insulin requirements have been scant, less than 10 units per day. At this point we are going to discontinue the sliding scale coverage. We will check fingersticks twice a day. Continue his metformin and low dose detemir 5 units daily. If he develops hypoglycemia I would stop the detemir insulin. 4. Benign prostatic hypertrophy (BPH). No urinary retention. 5. Hypokalemia. This has finally resolved. 6. Lower extremity edema. Continue furosemide. I reduced his amlodipine, which I think was contributing some to his edema. I have put in a consultation from ARU for an evaluation. Case was discussed with his physical therapist today.
[2019-08-15] MEDS ORDERED: AMLO5TAB6 PO (11:40)
[2019-08-15] MEDS ORDERED: INSUDET SC (11:40)
[2019-08-15] MEDS ORDERED: LOVE1INJ SC (11:40)
[2019-08-15] MEDS ORDERED: CLOP75TA2 PO (11:40)
[2019-08-15] MEDS ORDERED: ATOR1TAB21 PO (11:40)
[2019-08-15] MEDS ORDERED: PEG1POW PO (11:40)
[2019-08-15 12:00] VITALS: BP 134/69
--- NOTE | 2019-08-17 13:51 | DSES ---
DATE OF ADMISSION: 08/12/2019 DATE OF DISCHARGE: 08/15/2019 PRINCIPAL DIAGNOSIS: Lacunar stroke. SECONDARY DIAGNOSES: 1. Hypertensive heart disease. 2. Type 2 diabetes. 3. BPH. 4. Hypokalemia. 5. Chronic lower extremity edema. HISTORY: Helder Garcia was admitted with an acute stroke. Details in history and physical on admission. HOSPITAL COURSE: Patient was admitted to a medical bed. He was on telemetry. He had no arrhythmia during the course of his hospitalization. MRI scan showed a lacunar stroke. Neurology was consulted. They recommended stopping aspirin and treating with Plavix as mono therapy. Rest of the hospitalization consisted of rehabilitation. His blood pressure remained well controlled. His diabetes remained under excellent control. I reduced his basal insulin to 5 units daily, and he did not develop any hypoglycemia. We stopped his sliding scale. We started his metformin before discharge. He had lower extremity edema. I reduced his amlodipine on admission. His edema improved. He also was on furosemide for this. SIGNIFICANT LABORATORIES: On day of discharge, white count 3.9, hemoglobin 12.6, platelets 124. Sodium 141, potassium 4.7, BUN 22, creatinine 1.0, glucose 112. Blood sugars were in the 100-200 range. DISPOSITION: He is discharged to rehabilitation unit in stable condition. DISCHARGE MEDICATIONS: - amlodipine 5 mg daily - atorvastatin 40 mg daily - Plavix 75 mg daily - Detemir insulin 5 units daily - MiraLax one packet twice a day - Senokot twice a day - amitriptyline 25 mg at bedtime - atenolol 50 mg at bedtime - finasteride 5 mg daily - furosemide 20 mg daily - metformin 500 mg at bedtime - omeprazole 20 mg daily - vitamin D 1000 units at bedtime No added salt diet. Activity per physical medicine and rehabilitation (PMR) unit.
== END 2019-08-15 14:39 | DRG 66 ==
LOC: EDBD 12:54 → M ED 12:54 → M ED INP 17:41 → M PCU 18:39
PROVIDERS: ADMIT Family Medicine; ATTEND Student in an Organized Health Care Education/Training Program
DX: I63.9 Cerebral infarction, unspecified (principal); E78.5 Hyperlipidemia, unspecified; E11.9 Type 2 diabetes mellitus without complications; N40.0 Benign prostatic hyperplasia without lower urinary tract symptoms; E87.6 Hypokalemia

== ENCOUNTER 2019-08-15 14:19 | Inpatient (IN) | payer MEDICARE, OTHER ==
[~2019-08-15] VITALS: Ht 182.9 cm; Wt 115.4 kg
[~2019-08-15 14:19] MED LIST changes: +AMLO5TAB6 PO; +ASPI81TA26 PO; +ATOR1TAB21 PO; +CLOP75TA2 PO; +FURO20TA2 PO; +GABA-843 PO; +IBUP1TAB6 PO; +INSUDET SC; +LANTINJ4 SC; +LOVE1INJ SC; +METF-791 PO; +OMEP20CA4 PO; +PEG1POW PO
[2019-08-15 14:45] VITALS: BP 141/70
[2019-08-15] MEDS ORDERED: GLUCAGON FOR INJ 1 MG VIAL (J1610) SC PRN (15:15)
[2019-08-15] MEDS ORDERED: MOM 30ML SUSPENSION UDC PO PRN (15:15)
[2019-08-15] MEDS ORDERED: DEXTROSE 50% 50 ML SYRINGE IV PRN (15:15)
[2019-08-15] MEDS ORDERED: GLUCOSE 4 GM CHEW TABLET PO PRN (15:15)
[2019-08-15] MEDS ORDERED: ACETAMINOPHEN TAB 650MG DOSE (2X325MG) PO PRN (15:15)
--- NOTE | 2019-08-15 16:15 | HPEPDOC ---
Kitchen Steward/Stewardess Note DATE OF ADMISSION: 08-15-19 SOURCE OF ADMISSION INFORMATION: [facility] record and patient CHIEF COMPLAINT: stroke HISTORY OF PRESENT ILLNESS: 74M pmh HTN, HLD, chronic LE edema in setting of suspected CHF, DM2, GERD, BPH who presented to [facility] ED on 08-12-19 complaining of weakenss in his legs and new onset RUE weakness with dysarthria. CTH was negative for acute intracranial bleed and MRI on 08-13-19 showed, There is a midline punctate focus of high signal abnormality within the splenium of the corpus callosum on the diffusion sequence consistent with an acute infarctscattered nonspecific foci of high signal abnormality in the guzman radiata and centrum semiovalemay represent areas of gliosis, demyelination, and/or chronic ischemic change. He was evaluated by neurology who recommended only Plavix therapy in addition to his statin. ECHO was also performed showing, Borderline concentric left ventricular hypertrophy. Normal regional LV wall motion and wall thickening. Normal LV systolic function. Left ventricular ejection fraction 60% by visual estimate. Grade 1 LV diastolic dysfunction. Carotid US showed, Mild bilateral stenosis in the proximal ICA's using SRU criteria. He developed thrombocytopenia with platelets of 124 and anemia with Hgb 12.6, and in addition had considerable deficits in mobility and ADLs. He was deemed medically appropriate for discharge to ARU on 08-15-19. REVIEW OF SYSTEMS: The following is a completed review of systems and has been reviewed. Review of systems otherwise unremarkable. PAIN: Patient self reports no pain EYES: No recent vision changes EARS, NOSE, & THROAT: No throat pain, or dysphagia, or rhinorrhea CARDIOVASCULAR: Denies chest pain or palpitations. PULMONARY: Denies shortness of breath GASTROINTESTINAL: Denies constipation/diarrhea GENITOURINARY: +urinary retention (new) MUSCULOSKELETAL:left sided weakness NEUROLOGICAL:left sided paresis HEMATOLOGICAL: denies easy bruising SKIN: no rash PSYCHIATRIC: Unremarkable All other review of systems found to be negative. PAST MEDICAL HISTORY: as per HPI PAST SURGICAL HISTORY: bilateral knee, right shoulder, shrapnel removal ALLERGIES: Please see below. MEDICATIONS: Please see below. FAMILY HISTORY: reviewed and non-contributory SOCIAL HISTORY: retired, worked at [employer], non-smoker, no etoh/illicit drugs DIET: consistent carbs, fluid restrict 1800cc PHYSICAL EXAMINATION: VITAL SIGNS: Please see below. GENERAL: Pleasant and cooperative. No acute distress. obese HEENT: PERRL. Extraocular movements intact. Clear conjunctiva CARDIOVASCULAR: Regular rate and rhythm. No murmurs, rubs, or gallops LUNGS: Clear to auscultation bilaterally. No wheezes. No rhonchi ABDOMEN: Soft, nontender, nondistended. Positive bowel sounds. Normal active bowel sounds NEUROLOGICAL: Alert and oriented times three. Cranial nerves II through XII grossly intact. Sensation grossly intact in all 4 extremities (-) babinksi/clonus bilt (-) pronator drift (+) dysarthria EXTREMITIES:5\5 strength bilateral upper extremities. 5\5 strength right lower extremity. 5/5 strength in left lower extremity. (+) bilat LE edema (-) Ghada's SKIN: intact LABORATORY DATA: Please see below. IMAGING:Imaging documentation personally reviewed by record FUNCTIONAL STATUS: Premorbid: Modified Independent with all activities of daily life as well as mobility with a cane On Admission: 135 ft ambulated with RW Min assist-CGA with transfers and ADLs GOALS: Modified independent with RW community distances, stair negotiation, bathing, dressing, toileting, medical optimization, fall recovery, caregiver training, assess for DMEs. ASSESSMENT:74-year-old M with past medical history of HTN and diastolic CHF who presents status post stroke PLAN: 1. Rehab- PT/OT, advance gait training and ADL management, maintain ROM/stretch/strengthen bilat UE and LE 2. 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 Cardiac: pmh HTN c/u Amlodipine and atenolol- medicine consulted to assist in management -grade 1 diastolic CHF- c/u lasix, will fluid restrict to 1800cc and monitor for fluid overload -HLd c/u statin 4. Resp: encourage incentive spirometry, monitor for infection 5. Endo: pmh DM c/u metformin and ISS, adjust prn, consistent carb diet 6. Heme: thrombocytopenia- monitor, no signs of active bleeding 7. : new onset urinary retention, c/u finasteride and Bladder scans with PVRs 8. DVT ppx: lovenox and TEDs 9. GI ppx: omeprazole 10. Full Code, discussed with patient 11. Dispo: TBD POST ADMISSION PHYSICIAN EVALUATION: Medical and functional status: Description of medical status, medical assessment: As above. Rehabilitation diagnosis and current and prior cold morbid medical conditions as above. Risk of complications and plans to mitigate them as above. Description of functional status current status is as above. Prior status as above. Status compared to preadmission: There are no clinically significant differences between the patient's current status and the information described on the preadmission screening document. Treatment plan anticipated: Treatment plan is as described above. Required disciplines including physical therapy, occupational therapy, others as noted above. Intensity of services: 3 hours a day, 6 days a week. Special considerations: There are no specific special or safety considerations that would likely preclude immediate implementation of an intensive rehabilitation program or subsequently influence the plan of care ATTESTATION: Considering all the information above, it is my best judgment that this patient requires intensive rehabilitation therapy as described above and an inpatient hospital environment due to the complexity of nursing, medical, and rehabilitation needs required by the patient. Furthermore, this patient can reasonably be expected to participate in an benefit from an inpatient rehabilitation stay with an interdisciplinary team approach to the delivery of rehabilitation care under the direction and supervision of rehabilitation physician PROGNOSIS: Excellent ESTIMATED LENGTH OF STAY:12-14 days. PROJECTED DISCHARGE DESTINATION: Home with family support and any durable medical equipment required to increase functional safety and mobility TIME SPENT COUNSELING AND COORDINATING INITIAL CARE: Greater than 70 minutes. Vital Signs BP 141/70, HR 68bpm, resp 18, 97.7, 99% Home Medications Scheduled Amitriptyline HCl (Amitriptyline HCl) 25 Mg Tablet, 25 MG PO QHS, (Reported) Amlodipine Besylate (Amlodipine Besylate) 5 Mg Tablet, 5 MG PO DAILY@2100 Atenolol (Atenolol) 50 Mg Tablet, 50 MG PO QHS, (Reported) Atorvastatin Calcium (Atorvastatin Calcium) 20 Mg Tablet, 40 MG PO DAILY@2100 Clopidogrel Bisulfate (Clopidogrel) 75 Mg Tablet, 75 MG PO DAILY Enoxaparin Sodium (Lovenox) 40 Mg/0.4 Ml Syringe, 40 MG SC DAILY Finasteride (Finasteride) 5 Mg Tablet, 5 MG PO QHS, (Reported) Furosemide (Furosemide) 20 Mg Tablet, 20 MG PO QHS, (Reported) PRESCRIBED BID, ONLY TAKES DAILY Insulin Detemir (Levemir) 100 Unit/1 Ml Vial, 5 UNITS SC QHS Metformin HCl (Metformin HCl ER) 500 Mg Tab.er.24h, 500 MG PO QHS, (Reported) PRESCRIBED BID, ONLY TAKES DAILY Omeprazole (Omeprazole) 20 Mg Capsule.dr, 20 MG PO QHS, (Reported) Vitamin D (Vitamin D3) 1,000 Unit Tablet, 1,000 UNIT PO QHS, (Reported) Scheduled PRN Polyethylene Glycol 3350 (Polyethylene Glycol 3350) 17 Gm Powd.pack, 1 PKT PO BID PRN for CONSTIPATION Allergies Coded Allergies: Sulfa (Sulfonamide Antibiotics) (Verified Allergy, Mild, HIVES, 08/12/19) A-FIB/CHADSVASC A-FIB History Current/History of A-Fib/PAF?: No JAYNE FERNANDEZ MD Aug 15, 2019 16:15
--- NOTE | 2019-08-15 16:52 | CR.PDOC ---
General Date of Consultation: Aug 15, 2019 Referring Provider: JAYNE FERNANDEZ MD Consultation CONSULT FOR: Dr. Jayne Fernandez REASON FOR CONSULT: Medical management HISTORY OF PRESENT ILLNESS: This is a 74-year-old male with a pertinent past medical history of hypertension and diastolic heart failure who presented to [facility] for an acute CVA. When he was medically optimized he was discharged to ARU for rehabilitation. Hospitalist team was consulted for management of his chronic medical problems specifically for hypertension. Patient was seen and examined today he is well has no acute complaints. Patient denies weight loss, hair loss, headache, visual changes, chest pain, shortness of breath, cough, nausea, vomiting, diarrhea, abdominal pain, muscle aches, worsening arthritis, or change in mood. He admits to left-sided weakness and sensation loss. PAST MEDICAL HISTORY: 1. Hypertensive heart disease. 2. Vitamin D deficiency. 3. Hyperlipidemia. 4. Chronic lower extremity edema versus congestive heart failure. 5. Type 2 diabetes. 6. Gastroesophageal (GE) reflux. 7. Benign prostatic hypertrophy (BPH). 8. Acute CVA HOME MEDICATIONS: Please see below. ALLERGIES: Please see below PAST SURGICAL HISTORY: 1. Bilateral knee surgery 2. Right shoulder surgery. 3. Shrapnel removed from right leg SOCIAL HISTORY: Lives with: right outside of [place] Tobacco use: Past smoker when he was a teenager (quit 50 years ago). ETOH: Denies, Illicit drug use: Denies, CODE STATUS: Full code FAMILY HISTORY: Reviewed and noncontributory REVIEW OF SYSTEMS: 10 systems reviewed and negative other than HPI PHYSICAL EXAMINATION: VITAL SIGNS: Please see below GENERAL: Pleasant 74-year-old male sitting up in bed awake alert oriented speaking in complete sentences no acute distress HEENT: Moist mucous membranes with no JVD b with some chapped lips. CARDIOVASCULAR: S1 S2 regular no additional heart sounds appreciated. RESPIRATORY: Clear to auscultation bilaterally. ABDOMINAL: Bowel sounds present abdomen soft and nontender EXTREMITIES: No clubbing cyanosis. 2+ pitting edema bilaterally up to knees NEUROLOGICAL: Spontaneously moves all 4 extremities cranial 2 through 12 grossly intact no gross focal deficits appreciated. No tongue deviation or facial sensation loss. PSYCHOLOGICAL: Appropriate LABORATORY DATA: See below. MICROBIOLOGY: Please see below. IMAGIN08/13/2019 - Brain MRI 1. There is a midline punctate focus of high signal abnormality within the splenium of the corpus callosum on the diffusion sequence consistent with an acute infarct. 2. 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 3. There are scattered nonspecific foci of high signal abnormality in the guzman radiata and centrum semiovale. These are best seen on the flair images. These foci may represent areas of gliosis, demyelination, and/or chronic ischemic c hange. ASSESSMENT & PLAN: This is a age gender here with. PROBLEMS: 1. Acute CVA -Rehabilitation per [facility] recommendation -Continue with Plavix, statin 2. Grade 1 diastolic heart failure -C/W Lasix and fluid restriction 1800 mL - Will monitor volume status 3. Hypertension -c/w Amlodipine and atenolol -Currently on finasteride which can cause hypotension so well continue to monitor blood pressures while on this as well as Lasix 4. History of thrombocytopenia during recent admission -Will continue to monitor currently stable 5. Diabetes mellitus -ARU will continue metformin and place on insulin sliding scale. Will adjust when necessary - diet is consistent carb 6. Urinary retention secondary to history of BPH -will c/w finasteride 7. Constipation -C/W senna and Colace 8. History of anxiety -c/w Prozac 9. Acid reflux -c/w omeprazole 10. History of vitamin D deficiency - c/w vitamin D 1000 units by mouth daily DVT PROPHYLAXIS: Kenan Thank you for this interesting consult, we will continue to follow along with you. Please Vocera secure text or call with any specific questions. MEDICAL ATTENDING PHYSICIAN ADDENDUM: I have independently interviewed and examined this patient, and agree with the physical examination findings, and management plan as documented above by my resident physician. Allergies Coded Allergies: Sulfa (Sulfonamide Antibiotics) (Verified Allergy, Mild, HIVES, 08/12/19) Home Medications Scheduled Amitriptyline HCl (Amitriptyline HCl) 25 Mg Tablet, 25 MG PO QHS, (Reported) Amlodipine Besylate (Amlodipine Besylate) 5 Mg Tablet, 5 MG PO DAILY@2100 for 1 Days, #1 Atenolol (Atenolol) 50 Mg Tablet, 50 MG PO QHS, (Reported) Atorvastatin Calcium (Atorvastatin Calcium) 20 Mg Tablet, 40 MG PO DAILY@2100 for 1 Days, #1 Clopidogrel Bisulfate (Clopidogrel) 75 Mg Tablet, 75 MG PO DAILY for 1 Days, #1 Enoxaparin Sodium (Lovenox) 40 Mg/0.4 Ml Syringe, 40 MG SC DAILY for 1 Days, #1 Finasteride (Finasteride) 5 Mg Tablet, 5 MG PO QHS, (Reported) Furosemide (Furosemide) 20 Mg Tablet, 20 MG PO QHS, (Reported) PRESCRIBED BID, ONLY TAKES DAILY Insulin Detemir (Levemir) 100 Unit/1 Ml Vial, 5 UNITS SC QHS for 1 Days, #1 Metformin HCl (Metformin HCl ER) 500 Mg Tab.er.24h, 500 MG PO QHS, (Reported) PRESCRIBED BID, ONLY TAKES DAILY Omeprazole (Omeprazole) 20 Mg Capsule.dr, 20 MG PO QHS, (Reported) Vitamin D (Vitamin D3) 1,000 Unit Tablet, 1,000 UNIT PO QHS, (Reported) Scheduled PRN Polyethylene Glycol 3350 (Polyethylene Glycol 3350) 17 Gm Powd.pack, 1 PKT PO BID PRN for CONSTIPATION for 1 Days, #1 RONY MUNOZ DO Aug 15, 2019 16:52 RUIZ BAIRD MD Aug 15, 2019 17:58
[2019-08-15] MEDS: HumaLOG INSULIN (NovoLOG) PER UNIT SC SCH ×2 (17:35→21:00)
[2019-08-15 21:00] VITALS: BP 185/89
[2019-08-15] MEDS ORDERED: FUROSEMIDE 20 MG TAB PO SCH (21:00)
[2019-08-15] MEDS ORDERED: OMEPRAZOLE 20 MG CAP PO SCH (21:00)
[2019-08-15] MEDS: DOCUSATE SODIUM 100 MG CAP PO SCH (21:09)
[2019-08-15] MEDS: OMEPRAZOLE 20 MG CAP PO SCH (21:09)
[2019-08-15] MEDS: SENNA 8.6 MG TAB (SENOKOT) PO SCH (21:09)
[2019-08-15] MEDS: FLUoxetine 20 MG CAP PO SCH (21:10)
[2019-08-15] MEDS: metFORMIN XR 500MG TAB *GLUCOPHAGE XR PO SCH (21:10)
[2019-08-15] MEDS: VITAMIN D 1,000 INTERNATIONAL UNITS TABLET PO SCH (21:10)
[2019-08-15] MEDS: amLODIPine 5 MG TAB PO SCH (21:10)
[2019-08-15] MEDS: LEVEMIR (INSULIN DETEMIR) 1 UNITS/0.01ML SC SCH (21:11)
[2019-08-15] MEDS: ATENOLOL 50 MG TAB PO SCH (21:11)
[2019-08-15] MEDS: FINASTERIDE 5 MG TAB PO SCH (21:12)
[2019-08-15 22:24] VITALS: BP 144/84
[2019-08-16 05:51] VITALS: BP 175/87
[2019-08-16 06:51] VITALS: BP 135/97
[2019-08-16 07:00] LABS: BASO % 0.8 % (0.0-1.0); EOS # 0.1 10^3/uL (0.0-0.5); HEMATOCRIT 38.5 % (42.0-52.0); HEMOGLOBIN 12.9 g/dl (13.5-17.5); LYMPH # 1.2 10^3/uL (1.5-5.0); LYMPH % 34.2 % (24.0-44.0); MEAN CORPUSCULAR HEMOGLOBIN 30.2 pg (27.0-33.0); MEAN CORPUSCULAR HGB CONC 33.5 g/dl (32.0-36.5); MEAN CORPUSCULAR VOLUME 90.2 fl (80.0-96.0); MONO # 0.3 10^3/uL (0.0-0.8); MONO % 9.1 % (0.0-5.0); NEUTROPHILS # 1.9 10^3/uL (1.5-8.5); NEUTROPHILS % 52.6 % (36.0-66.0); PLATELET COUNT, AUTOMATED 110 10^3/uL (150-450); RED BLOOD COUNT 4.27 10^6/uL (4.30-6.10); WHITE BLOOD COUNT 3.6 10^3/uL (4.0-10.0)
[2019-08-16 07:25] LABS: ALBUMIN 2.7 GM/DL (3.2-5.2); ALT/SGPT 28 U/L (12-78); BILIRUBIN,TOTAL 1.1 MG/DL (0.2-1.0); BLOOD UREA NITROGEN 18 MG/DL (7-18); CALCIUM LEVEL 8.8 MG/DL (8.8-10.2); CARBON DIOXIDE LEVEL 24 MEQ/L (21-32); CHLORIDE LEVEL 111 MEQ/L (98-107); CREATININE FOR GFR 0.88 MG/DL (0.70-1.30); GLOMERULAR FILTRATION RATE > 60.0 (>42); GLUCOSE, FASTING 127 MG/DL (70-100); POTASSIUM SERUM 4.2 MEQ/L (3.5-5.1); SODIUM LEVEL 141 MEQ/L (136-145); TOTAL PROTEIN 6.8 GM/DL (6.4-8.2)
[2019-08-16] MEDS: CLOPIDOGREL 75 MG TAB PO SCH (07:45)
[2019-08-16] MEDS: DOCUSATE SODIUM 100 MG CAP PO SCH ×2 (07:45→21:00)
[2019-08-16] MEDS: HumaLOG INSULIN (NovoLOG) PER UNIT SC SCH ×4 (07:46→21:00)
[2019-08-16] MEDS ORDERED: ENOXAPARIN 40 MG/0.4 ML SYRINGE (J1650) SC SCH (09:00)
--- NOTE | 2019-08-16 09:56 | IPNPDOC ---
PM&R Progress Note DATE OF SERVICE: Aug 16, 2019 Dog Hair Clipper Progress Note Subjective: Patient reporting he slept well and is not having difficulty swallowing. REVIEW OF SYSTEMS: The following is a completed review of systems and has been reviewed. Review of systems otherwise unremarkable. PAIN: Patient self reports no pain EYES: No recent vision changes EARS, NOSE, & THROAT: No throat pain, or dysphagia, or rhinorrhea CARDIOVASCULAR: Denies chest pain or palpitations. PULMONARY: Denies shortness of breath GASTROINTESTINAL: Denies constipation/diarrhea GENITOURINARY: +urinary retention (new) MUSCULOSKELETAL:left sided weakness NEUROLOGICAL:left sided paresis HEMATOLOGICAL: denies easy bruising SKIN: no rash PSYCHIATRIC: Unremarkable All other review of systems found to be negative. VITAL SIGNS: Please see below. GENERAL: Pleasant and cooperative. No acute distress. obese HEENT: PERRL. Extraocular movements intact. Clear conjunctiva CARDIOVASCULAR: Regular rate and rhythm. No murmurs, rubs, or gallops LUNGS: Clear to auscultation bilaterally. No wheezes. No rhonchi ABDOMEN: Soft, nontender, nondistended. Positive bowel sounds. Normal active bowel sounds NEUROLOGICAL: Alert and oriented times three. Cranial nerves II through XII grossly intact. Sensation grossly intact in all 4 extremities (-) babinksi/clonus bilt (-) pronator drift (+) dysarthria EXTREMITIES:5\5 strength bilateral upper extremities. 5\5 strength right lower extremity. 5/5 strength in left lower extremity. (+) bilat LE edema (-) Ghada's SKIN: intact ASSESSMENT:74-year-old M with past medical history of HTN and diastolic CHF who presents status post stroke PLAN: 1. Rehab- PT/OT, advance gait training and ADL management, maintain ROM/stre tch/strengthen bilat UE and LE 2. 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 Cardiac: pmh HTN c/u Amlodipine and atenolol- medicine consulted to assist in management -grade 1 diastolic CHF- c/u lasix, c/u fluid restrict to 1800cc and monitor for fluid overload -HLd c/u statin 4. Resp: encourage incentive spirometry, monitor for infection 5. Endo: pmh DM c/u metformin and ISS, adjust prn, consistent carb diet 6. Heme: thrombocytopenia- monitor, no signs of active bleeding, lovenox on hold 7. : new onset urinary retention, c/u finasteride and Bladder scans with PVRs 8. DVT ppx: holding lovenox due to thrombocytopenia, will order dopplers to r/o proximal DVTs, c/u TEDs 9. GI ppx: omeprazole 10. Full Code, discussed with patient 11. Dispo: TBD Allergies Coded Allergies: Sulfa (Sulfonamide Antibiotics) (Verified Allergy, Mild, HIVES, 08/12/19) Vital Signs Vital Signs Date Time Temp Pulse Resp B/P (MAP) Pulse Ox O2 Delivery O2 Flow Rate FiO2 08/16/19 06:51 64 135/97 (110) 08/16/19 05:51 98.8 18 96 Room Air Laboratory Data CBC/BMP Laboratory Tests 08/16/19 06:35 Labs 24H Laboratory Tests 2 08/15/19 17:09: Bedside Glucose (Misc Panel) 171H 08/15/19 21:02: Bedside Glucose (Misc Panel) 107 08/16/19 06:35: Immature Granulocyte % (Auto) 0.3, Neutrophils (%) (Auto) 52.6, Lymphocytes (%) (Auto) 34.2, Monocytes (%) (Auto) 9.1H, Eosinophils (%) (Auto) 3.0, Basophils (%) (Auto) 0.8, Neutrophils # (Auto) 1.9, Lymphocytes # (Auto) 1.2L, Monocytes # (Auto) 0.3, Eosinophils # (Auto) 0.1, Basophils # (Auto) 0.0, Nucleated Red Blo od Cells % (auto) 0.0, Anion Gap 6L, Glomerular Filtration Rate > 60.0, Calcium Level 8.8, Total Bilirubin 1.1H, Aspartate Amino Transf (AST/SGOT) 36, Alanine Aminotransferase (ALT/SGPT) 28, Alkaline Phosphatase 75, Total Protein 6.8, Albumin 2.7L, Albumin/Globulin Ratio 0.66L 08/16/19 06:41: Bedside Glucose (Misc Panel) 116H Current Medications Current Medications Current Medications Medications (Trade) Dose Ordered Sig/Denia Route PRN Reason Start Time Stop Time Status Last Admin Dose Admin Acetaminophen (Tylenol Tab) 650 mg Q4HP PRN PO MILD PAIN (PS 1-4) 08/15/19 15:15 Amlodipine Besylate (Norvasc) 5 mg DAILY@2100 PO 08/15/19 21:00 08/15/19 21:10 Atenolol (Tenormin) 50 mg QHS PO 08/15/19 21:00 08/15/19 21:11 Atorvastatin Calcium (Lipitor) 40 mg DAILY@2100 PO 08/16/19 21:00 Clopidogrel Bisulfate (PLAVix) 75 mg DAILY PO 08/16/19 09:00 08/16/19 07:45 Dextrose (Dextrose 50%) 25 ml ASDIRECTED PRN IV SEE LABEL COMMENTS 08/15/19 15:15 Docusate Sodium (Colace) 100 mg BID PO 08/15/19 21:00 08/16/19 07:45 Enoxaparin Sodium (Lovenox) 40 mg DAILY SC 08/16/19 09:00 08/16/19 07:46 Finasteride (Proscar) 5 mg QHS PO 08/15/19 21:00 08/15/19 21:12 Fluoxetine HCl (PROzac) 20 mg QHS PO 08/15/19 21:00 08/15/19 21:10 Furosemide (Lasix) 20 mg DAILY@2100 PO 08/15/19 21:00 08/15/19 21:09 Glucagon (Glucagon) 1 mg ASDIRECTED PRN SC SEE LABEL COMMENTS 08/15/19 15:15 Glucose (Glucose) 16 GM ASDIRECTED PRN PO SEE LABEL COMMENTS 08/15/19 15:15 Insulin Detemir (Levemir Insulin) 5 units QHS SC 08/15/19 21:00 08/15/19 21:11 Insulin Human Lispro (HumaLOG INSULIN) SEE PROTOCOL TABLE AC SC 08/15/19 17:30 08/16/19 07:46 Insulin Human Lispro (HumaLOG INSULIN) SEE PROTOCOL TABLE QHS SC 08/15/19 21:00 Magnesium Hydroxide (Milk Of Magnesia) 30 ml DAILYPRN PRN PO CONSTIPATION 08/15/19 15:15 Metformin HCl (Glucophage Xr) 500 mg DAILY@18 PO 08/15/19 18:00 08/15/19 21:10 Miscellaneous (Unresolved Clarification Entry) SEE LABEL COMMENTS DAILY XX 08/15/19 09:00 08/15/19 17:35 DC Omeprazole (PriLOSEC) 20 mg QHS PO 08/15/19 21:00 08/15/19 21:09 Omeprazole (PriLOSEC) 20 mg QHS PO 08/15/19 21:00 UNV Senna (Senokot) 1 tab QHS PO 08/15/19 21:00 08/15/19 21:09 Vitamin D (Vitamin D) 1,000 units DAILY@2100 PO 08/15/19 21:00 08/15/19 21:10 JAYNE FERNANDEZ MD Aug 16, 2019 09:56
[2019-08-16 14:00] VITALS: BP 155/75
--- NOTE | 2019-08-16 14:05 | IPNPDOC ---
Date Seen The patient was seen on 08/16/19. Progress Note SUBJECTIVE: Patient states that he feels tired but is comfortable otherwise. Reports that he had some urinary retention last night requiring straight catherization He is unsure if that was due to being in the hospital and having someone near by when he urinate or not BP noted to be elevated last night 180s systolic, now down to 130s systolic. OBJECTIVE PHYSICAL EXAMINATION: VITAL SIGNS: Please see below. General: No acute distress, Alert Eyes: Normal sclera, EOMI, ROM HENT: Atraumatic Cardiovascular: Normal rate, normal rhythm. Pulmonary: Clear to auscultation b/l, no wheezing GI: Soft, nontender, nondistended Skin: Warm and dry Neuro: CN grossly intact. No focal deficits. Strengths equal b/l. Psych: oriented x 3 LABORATORY DATA, IMAGING STUDIES, MICROBIOLOGY: Please see below. ASSESSMENT AND PLAN: 1. Acute CVA - c/w PT/OT per Rehab. - no significant residual deficits appreciated. - c/w Plavix and statin. 2. HTN - On Norvasc 5 mg and Atenolol 50 mg daily. - Somewhat labile, monitor and adjust as needed. 3. HFpEF - c/w Lasix and fluid restriction 1800cc/day. 4. Recent hx of thrombocytopenia - Monitor platelets. No evidence of bleed. 5. Urinary retention - c/w finasteride. Bladder scan and straight cath as needed. VS, I&O, 24H, Fishbone Vital Signs/I&O Vital Signs Date Time Temp Pulse Resp B/P (MAP) Pulse Ox O2 Delivery O2 Flow Rate FiO2 08/16/19 06:51 64 135/97 (110) 08/16/19 05:51 98.8 18 96 Room Air I&O- Last 24 Hours up to 6 AM 08/16/19 06:00 Intake Total 120 ml Output Total 2300 ml Balance -2180 ml Laboratory Data 24H LABS Laboratory Tests 2 08/15/19 17:09: Bedside Glucose (Misc Panel) 171H 08/15/19 21:02: Bedside Glucose (Misc Panel) 107 08/16/19 06:35: Immature Granulocyte % (Auto) 0.3, Neutrophils (%) (Auto) 52.6, Lymphocytes (%) (Auto) 34.2, Monocytes (%) (Auto) 9.1H, Eosinophils (%) (Auto) 3.0, Basophils (%) (Auto) 0.8, Neutrophils # (Auto) 1.9, Lymphocytes # (Auto) 1.2L, Monocytes # (Auto) 0.3, Eosinophils # (Auto) 0.1, Basophils # (Auto) 0.0, Nucleated Red Blood Cells % (auto) 0.0, Anion Gap 6L, Glomerular Filtration Rate > 60.0, Calcium Level 8.8, Total Bilirubin 1.1H, Aspartate Amino Transf (AST/SGOT) 36, Alanine Aminotransferase (ALT/SGPT) 28, Alkaline Phosphatase 75, Total Protein 6.8, Albumin 2.7L, Albumin/Globulin Ratio 0.66L 08/16/19 06:41: Bedside Glucose (Misc Panel) 116H 08/16/19 11:36: Bedside Glucose (Misc Panel) 185H CBC/BMP Laboratory Tests 08/16/19 06:35 GINNY CARRASOC MD Aug 16, 2019 14:05
--- NOTE | 2019-08-16 17:40 | REPVR ---
PROCEDURE INFORMATION: Exam: US Duplex Bilateral Lower Extremity Veins Exam date and time: 08/16/2019 4:50 PM Age: 74 years old Clinical history: Screening exam; Immobility; Additional info: [employer]city TECHNIQUE: Imaging protocol: Real-time duplex ultrasound of the Bilateral Lower Extremities with 2-D guzman scale, color Doppler flow and spectral waveform analysis with image documentation. Complete exam focused on the bilateral lower extremity veins. COMPARISON: No relevant prior studies available. FINDINGS: Right deep veins: Unremarkable. The common femoral, femoral, proximal profunda femoral, popliteal and posterior tibial veins are patent without thrombus. Normal Doppler waveforms. Normal compressibility and/or augmentation response. Right superficial veins: Saphenofemoral junction is patent without thrombus. Left deep veins: Unremarkable. The common femoral, femoral, proximal profunda femoral, popliteal and posterior tibial veins are patent without thrombus. Normal Doppler waveforms. Normal compressibility and/or augmentation response. Left superficial veins: Saphenofemoral junction is patent without thrombus. Soft tissues: Unremarkable. IMPRESSION: No sonographic evidence of deep vein thrombosis. Electronically signed by: Carlos Manuel Carpenter On 08/16/2019 17:40:39 PM
[2019-08-16] MEDS: metFORMIN XR 500MG TAB *GLUCOPHAGE XR PO SCH (18:00)
[2019-08-16 20:00] VITALS: BP 142/84
[2019-08-16] MEDS: SENNA 8.6 MG TAB (SENOKOT) PO SCH (21:00)
[2019-08-16] MEDS: LEVEMIR (INSULIN DETEMIR) 1 UNITS/0.01ML SC SCH (21:18)
[2019-08-16] MEDS: OMEPRAZOLE 20 MG CAP PO SCH (21:19)
[2019-08-16] MEDS: VITAMIN D 1,000 INTERNATIONAL UNITS TABLET PO SCH (21:19)
[2019-08-16] MEDS: amLODIPine 5 MG TAB PO SCH (21:19)
[2019-08-16] MEDS: FLUoxetine 20 MG CAP PO SCH (21:19)
[2019-08-16] MEDS: ATENOLOL 50 MG TAB PO SCH (21:19)
[2019-08-16] MEDS: FINASTERIDE 5 MG TAB PO SCH (21:20)
[2019-08-16] MEDS: ATORVASTATIN 20 MG TAB PO SCH (21:20)
[2019-08-17 06:00] VITALS: BP 133/79
[2019-08-17] MEDS: FUROSEMIDE 20 MG TAB PO SCH (08:52)
[2019-08-17] MEDS: DOCUSATE SODIUM 100 MG CAP PO SCH ×2 (08:52→21:47)
[2019-08-17] MEDS: HumaLOG INSULIN (NovoLOG) PER UNIT SC SCH ×4 (08:52→20:45)
[2019-08-17] MEDS: CLOPIDOGREL 75 MG TAB PO SCH (08:53)
--- NOTE | 2019-08-17 10:31 | IPNPDOC ---
Date Seen The patient was seen on 08/17/19. Progress Note SUBJECTIVE: Patient stated that he was able to urinate yesterday and has not had to be cath again. Afebrile overnight. BP had come down overall, in 130s systolic this morning. OBJECTIVE PHYSICAL EXAMINATION: VITAL SIGNS: Please see below. General: No acute distress, Alert Eyes: Normal sclera, EOMI, ROM HENT: Atraumatic Cardiovascular: Normal rate, normal rhythm. Pulmonary: Clear to auscultation b/l, no wheezing GI: Soft, nontender, nondistended Skin: Warm and dry Neuro: CN grossly intact. No focal deficits. Strengths equal b/l. Psych: oriented x 3 LABORATORY DATA, IMAGING STUDIES, MICROBIOLOGY: Please see below. ASSESSMENT AND PLAN: 1. Acute CVA - c/w PT/OT per Rehab. - no significant residual deficits appreciated. - c/w Plavix and statin. 2. HTN - On Norvasc 5 mg and Atenolol 50 mg daily. - Somewhat labile, monitor and adjust as needed. 3. HFpEF - c/w Lasix and fluid restriction 1800cc/day. 4. Recent hx of thrombocytopenia - Monitor platelets. No evidence of bleed. 5. Urinary retention - Intermittent. - c/w finasteride. VS, I&O, 24H, Fishbone Vital Signs/I&O Vital Signs Date Time Temp Pulse Resp B/P (MAP) Pulse Ox O2 Delivery O2 Flow Rate FiO2 08/17/19 06:00 98.0 18 65 133/79 (97) 97 Room Air I&O- Last 24 Hours up to 6 AM 08/17/19 06:00 Intake Total 840 ml Output Total 0 ml Balance 840 ml Laboratory Data 24H LABS Laboratory Tests 2 08/16/19 11:36: Bedside Glucose (Misc Panel) 185H 08/16/19 16:41: Bedside Glucose (Misc Panel) 136H 08/17/19 06:34: Bedside Glucose (Misc Panel) 111H GINNY CARRASCO MD Aug 17, 2019 10:31
[2019-08-17 14:00] VITALS: BP 125/69
[2019-08-17] MEDS: SINEMET 25-100 MG TAB PO SCH (17:16)
[2019-08-17] MEDS: metFORMIN XR 500MG TAB *GLUCOPHAGE XR PO SCH (17:16)
--- NOTE | 2019-08-17 18:36 | IPNPDOC ---
PM&R Progress Note DATE OF SERVICE: Aug 17, 2019 Spa Supervisor Progress Note Subjective: Patient reporting he has fallen at least 12 times this past year, reports his voice is softer and his handwriting smaller. He is open to a trial of Sinemet for suspected Parkinsonism. REVIEW OF SYSTEMS: The following is a completed review of systems and has been reviewed. Review of systems otherwise unremarkable. PAIN: Patient self reports no pain EYES: No recent vision changes EARS, NOSE, & THROAT: No throat pain, or dysphagia, or rhinorrhea CARDIOVASCULAR: Denies chest pain or palpitations. PULMONARY: Denies shortness of breath GASTROINTESTINAL: Denies constipation/diarrhea GENITOURINARY: +urinary retention (new) MUSCULOSKELETAL:left sided weakness NEUROLOGICAL:left sided paresis HEMATOLOGICAL: denies easy bruising SKIN: no rash PSYCHIATRIC: Unremarkable All other review of systems found to be negative. VITAL SIGNS: Please see below. GENERAL: Pleasant and cooperative. No acute distress. obese HEENT: PERRL. Extraocular movements intact. Clear conjunctiva CARDIOVASCULAR: Regular rate and rhythm. No murmurs, rubs, or gallops LUNGS: Clear to auscultation bilaterally. No wheezes. No rhonchi ABDOMEN: Soft, nontender, nondistended. Positive bowel sounds. Normal active bowel sounds NEUROLOGICAL: Alert and oriented times three. Cranial nerves II through XII grossly intact. Sensation grossly intact in all 4 extremities (-) babinksi/clonus bilt (-) pronator drift (+) dysarthria EXTREMITIES:5\5 strength bilateral upper extremities. 5\5 strength right lower extremity. 5/5 strength in left lower extremity. (+) bilat LE edema (-) Ghada's SKIN: intact ASSESSMENT:74-year-old M with past medical history of HTN and diastolic CHF who presents status post stroke PLAN: 1. Rehab- PT/OT, advance gait training and ADL management, maintain ROM/stretch/strengthen bilat UE and LE 2. Neuro: s/p corpus callosum infarct with RUE weakness and dysarthria- c/u Plavix, statin, and BP control for secondary stroke prevention -c/u prozac for motor recovery -f/u neurology outpatient -patient noted to be shuffling in therapy, given his hx of recent falls, hypophonia, and micrographia, will start low dose Sinemet and monitor for clinical response -recent CTH negative for NPH to explain shuffling gait 3. Cardiac: pmh HTN c/u Amlodipine and atenolol- medicine consulted to assist in management -grade 1 diastolic CHF- c/u lasix, c/u fluid restrict to 1800cc and monitor for fluid overload -HLd c/u statin 4. Resp: encourage incentive spirometry, monitor for infection 5. Endo: pmh DM c/u metformin and ISS, adjust prn, consistent carb diet 6. Heme: thrombocytopenia- monitor, no signs of active bleeding, lovenox on hold 7. : new onset urinary retention, c/u finasteride and Bladder scans with PVRs 8. DVT ppx: holding lovenox due to thrombocytopenia, dopplers negative for LE DVT, c/u TEDs 9. GI ppx: omeprazole 10. Full Code, discussed with patient 11. Dispo: TBD Allergies Coded Allergies: Sulfa (Sulfonamide Antibiotics) (Verified Allergy, Mild, HIVES, 08/12/19) Vital Signs Vital Signs Date Time Temp Pulse Resp B/P (MAP) Pulse Ox O2 Delivery O2 Flow Rate FiO2 08/17/19 14:00 98.0 69 18 125/69 (87) 97 Room Air Laboratory Data Labs 24H Laboratory Tests 2 08/17/19 06:34: Bedside Glucose (Misc Panel) 111H 08/17/19 12:15: Bedside Glucose (Misc Panel) 144H 08/17/19 16:32: Bedside Glucose (Misc Panel) 116H Current Medications Current Medications Current Medications Medications (Trade) Dose Ordered Sig/Denia Route PRN Reason Start Time Stop Time Status Last Admin Dose Admin Acetaminophen (Tylenol Tab) 650 mg Q4HP PRN PO MILD PAIN (PS 1-4) 08/15/19 15:15 Amlodipine Besylate (Norvasc) 5 mg DAILY@2100 PO 08/15/19 21:00 08/16/19 21:19 Atenolol (Tenormin) 50 mg QHS PO 08/15/19 21:00 08/16/19 21:19 Atorvastatin Calcium (Lipitor) 40 mg DAILY@2100 PO 08/16/19 21:00 08/16/19 21:20 Carbidopa/Levodopa (Sinemet 25/100) 0.5 tab TID@0800,1200,1600 PO 08/17/19 16:00 08/17/19 17:16 Clopidogrel Bisulfate (PLAVix) 75 mg DAILY PO 08/16/19 09:00 08/17/19 08:53 Dextrose (Dextrose 50%) 25 ml ASDIRECTED PRN IV SEE LABEL COMMENTS 08/15/19 15:15 Docusate Sodium (Colace) 100 mg BID PO 08/15/19 21:00 08/17/19 08:52 Enoxaparin Sodium (Lovenox) 40 mg DAILY SC 08/16/19 09:00 08/16/19 09:55 DC 08/16/19 07:46 Finasteride (Proscar) 5 mg QHS PO 08/15/19 21:00 08/16/19 21:20 Fluoxetine HCl (PROzac) 20 mg QHS PO 08/15/19 21:00 08/16/19 21:19 Furosemide (Lasix) 20 mg DAILY PO 08/17/19 09:00 08/17/19 08:52 Furosemide (Lasix) 20 mg DAILY@2100 PO 08/15/19 21:00 08/16/19 15:48 DC 08/15/19 21:09 Glucagon (Glucagon) 1 mg ASDIRECTED PRN SC SEE LABEL COMMENTS 08/15/19 15:15 Glucose (Glucose) 16 GM ASDIRECTED PRN PO SEE LABEL COMMENTS 08/15/19 15:15 Insulin Detemir (Levemir Insulin) 5 units QHS SC 08/15/19 21:00 08/16/19 21:18 Insulin Human Lispro (HumaLOG INSULIN) SEE PROTOCOL TABLE AC SC 08/15/19 17:30 08/17/19 17:18 Insulin Human Lispro (HumaLOG INSULIN) SEE PROTOCOL TABLE QHS SC 08/15/19 21:00 Magnesium Hydroxide (Milk Of Magnesia) 30 ml DAILYPRN PRN PO CONSTIPATION 08/15/19 15:15 Metformin HCl (Glucophage Xr) 500 mg DAILY@18 PO 08/15/19 18:00 08/17/19 17:16 Miscellaneous (Unresolved Clarification Entry) SEE LABEL COMMENTS DAILY XX 08/15/19 09:00 08/15/19 17:35 DC Omeprazole (PriLOSEC) 20 mg QHS PO 08/15/19 21:00 08/16/19 21:19 Omeprazole (PriLOSEC) 20 mg QHS PO 08/15/19 21:00 UNV Senna (Senokot) 1 tab QHS PO 08/15/19 21:00 08/15/19 21:09 Vitamin D (Vitamin D) 1,000 units DAILY@2100 PO 08/15/19 21:00 08/16/19 21:19 JAYNE FERNANDEZ MD Aug 17, 2019 18:36
[2019-08-17 20:00] VITALS: BP 145/74
[2019-08-17] MEDS: VITAMIN D 1,000 INTERNATIONAL UNITS TABLET PO SCH (21:46)
[2019-08-17] MEDS: ATORVASTATIN 20 MG TAB PO SCH (21:46)
[2019-08-17] MEDS: ATENOLOL 50 MG TAB PO SCH (21:47)
[2019-08-17] MEDS: OMEPRAZOLE 20 MG CAP PO SCH (21:47)
[2019-08-17] MEDS: SENNA 8.6 MG TAB (SENOKOT) PO SCH (21:47)
[2019-08-17] MEDS: amLODIPine 5 MG TAB PO SCH (21:47)
[2019-08-17] MEDS: LEVEMIR (INSULIN DETEMIR) 1 UNITS/0.01ML SC SCH (21:48)
[2019-08-17] MEDS: FINASTERIDE 5 MG TAB PO SCH (21:49)
[2019-08-17] MEDS: FLUoxetine 20 MG CAP PO SCH (22:03)
[2019-08-18 05:53] LABS: HEMATOCRIT 37.1 % (42.0-52.0); HEMOGLOBIN 12.8 g/dl (13.5-17.5); MEAN CORPUSCULAR HEMOGLOBIN 30.2 pg (27.0-33.0); MEAN CORPUSCULAR HGB CONC 34.5 g/dl (32.0-36.5); MEAN CORPUSCULAR VOLUME 87.5 fl (80.0-96.0); PLATELET COUNT, AUTOMATED 115 10^3/uL (150-450); RED BLOOD COUNT 4.24 10^6/uL (4.30-6.10); WHITE BLOOD COUNT 3.9 10^3/uL (4.0-10.0)
[2019-08-18 06:00] VITALS: BP 120/66
[2019-08-18 06:19] LABS: BLOOD UREA NITROGEN 22 MG/DL (7-18); CALCIUM LEVEL 8.6 MG/DL (8.8-10.2); CARBON DIOXIDE LEVEL 25 MEQ/L (21-32); CHLORIDE LEVEL 111 MEQ/L (98-107); CREATININE FOR GFR 0.88 MG/DL (0.70-1.30); GLOMERULAR FILTRATION RATE > 60.0 (>42); GLUCOSE, FASTING 115 MG/DL (70-100); POTASSIUM SERUM 4.1 MEQ/L (3.5-5.1); SODIUM LEVEL 141 MEQ/L (136-145)
[2019-08-18] MEDS: DOCUSATE SODIUM 100 MG CAP PO SCH ×2 (09:00→21:57)
[2019-08-18] MEDS: HumaLOG INSULIN (NovoLOG) PER UNIT SC SCH ×4 (09:15→20:22)
[2019-08-18] MEDS: SINEMET 25-100 MG TAB PO SCH ×3 (09:15→17:55)
[2019-08-18] MEDS: CLOPIDOGREL 75 MG TAB PO SCH (09:15)
[2019-08-18] MEDS: FUROSEMIDE 20 MG TAB PO SCH (09:16)
--- NOTE | 2019-08-18 09:26 | IPNPDOC ---
Date Seen The patient was seen on 08/18/19. Progress Note SUBJECTIVE: Patient appear more energetic today. No further episode of urinary retention noted. BP 120-140s systolic. OBJECTIVE PHYSICAL EXAMINATION: VITAL SIGNS: Please see below. General: No acute distress, Alert Eyes: Normal sclera, EOMI, ROM HENT: Atraumatic Cardiovascular: Normal rate, normal rhythm. Pulmonary: Clear to auscultation b/l, no wheezing GI: Soft, nontender, nondistended Skin: Warm and dry Neuro: CN grossly intact. No focal deficits. Strengths equal b/l. Psych: oriented x 3 LABORATORY DATA, IMAGING STUDIES, MICROBIOLOGY: Please see below. ASSESSMENT AND PLAN: 1. Acute CVA - c/w PT/OT per Rehab. - no significant residual deficits appreciated. - c/w Plavix and statin. 2. HTN - On Norvasc 5 mg and Atenolol 50 mg daily. - Somewhat labile, monitor and adjust as needed. 3. HFpEF - c/w Lasix and fluid restriction 1800cc/day. 4. Recent hx of thrombocytopenia - Monitor platelets. No evidence of bleed. 5. Urinary retention - Intermittent. Resolved at this time. - c/w finasteride. VS, I&O, 24H, Fishbone Vital Signs/I&O Vital Signs Date Time Temp Pulse Resp B/P (MAP) Pulse Ox O2 Delivery O2 Flow Rate FiO2 08/18/19 06:00 98.6 67 19 120/66 (84) 95 Room Air I&O- Last 24 Hours up to 6 AM 08/18/19 06:00 Intake Total 660 ml Output Total 0 ml Balance 660 ml Laboratory Data 24H LABS Laboratory Tests 2 08/17/19 12:15: Bedside Glucose (Misc Panel) 144H 08/17/19 16:32: Bedside Glucose (Misc Panel) 116H 08/17/19 19:54: Bedside Glucose (Misc Panel) 142H 08/18/19 05:29: Nucleated Red Blood Cells % (auto) 0.0, Anion Gap 5L, Glomerular Filtration Rate > 60.0, Calcium Level 8.6L 08/18/19 05:35: Bedside Glucose (Misc Panel) 110 CBC/BMP Laboratory Tests 08/18/19 05:29 GINNY CARRASCO MD Aug 18, 2019 09:26
[2019-08-18 14:00] VITALS: BP 101/52
[2019-08-18] MEDS: metFORMIN XR 500MG TAB *GLUCOPHAGE XR PO SCH (17:54)
[2019-08-18 20:00] VITALS: BP 147/72
[2019-08-18] MEDS: amLODIPine 5 MG TAB PO SCH (21:56)
[2019-08-18] MEDS: OMEPRAZOLE 20 MG CAP PO SCH (21:56)
[2019-08-18] MEDS: VITAMIN D 1,000 INTERNATIONAL UNITS TABLET PO SCH (21:56)
[2019-08-18] MEDS: ATORVASTATIN 20 MG TAB PO SCH (21:57)
[2019-08-18] MEDS: FLUoxetine 20 MG CAP PO SCH (21:57)
[2019-08-18] MEDS: SENNA 8.6 MG TAB (SENOKOT) PO SCH (21:57)
[2019-08-18] MEDS: ATENOLOL 50 MG TAB PO SCH (21:57)
[2019-08-18] MEDS: FINASTERIDE 5 MG TAB PO SCH (21:58)
[2019-08-18] MEDS: LEVEMIR (INSULIN DETEMIR) 1 UNITS/0.01ML SC SCH (21:58)
[2019-08-19 06:00] VITALS: BP 110/57
[2019-08-19] MEDS: HumaLOG INSULIN (NovoLOG) PER UNIT SC SCH ×4 (08:19→20:40)
[2019-08-19] MEDS: CLOPIDOGREL 75 MG TAB PO SCH (08:20)
[2019-08-19] MEDS: SINEMET 25-100 MG TAB PO SCH ×3 (08:20→16:07)
[2019-08-19] MEDS: FUROSEMIDE 20 MG TAB PO SCH (08:21)
[2019-08-19] MEDS: DOCUSATE SODIUM 100 MG CAP PO SCH ×2 (08:21→21:58)
--- NOTE | 2019-08-19 10:03 | IPNPDOC ---
Date Seen The patient was seen on 08/19/19. Progress Note SUBJECTIVE: Patient states that he feels well. Has no difficulty urinating yesterday. BP 110s systolic this AM. OBJECTIVE PHYSICAL EXAMINATION: VITAL SIGNS: Please see below. General: No acute distress, Alert Eyes: Normal sclera, EOMI, ROM HENT: Atraumatic Cardiovascular: Normal rate, normal rhythm. Pulmonary: Clear to auscultation b/l, no wheezing GI: Soft, nontender, nondistended Skin: Warm and dry Neuro: CN grossly intact. No focal deficits. Strengths equal b/l. Psych: oriented x 3 LABORATORY DATA, IMAGING STUDIES, MICROBIOLOGY: Please see below. ASSESSMENT AND PLAN: 1. Acute CVA - c/w PT/OT per Rehab. - no significant residual deficits appreciated. - c/w Plavix and statin. 2. HTN - On Norvasc 5 mg and Atenolol 50 mg daily. - Somewhat labile, monitor and adjust as needed. 3. HFpEF - c/w Lasix and fluid restriction 1800cc/day. 4. Recent hx of thrombocytopenia - Monitor platelets. No evidence of bleed. 5. Urinary retention - Intermittent. Resolved at this time. - c/w finasteride. VS, I&O, 24H, Fishbone Vital Signs/I&O Vital Signs Date Time Temp Pulse Resp B/P (MAP) Pulse Ox O2 Delivery O2 Flow Rate FiO2 08/19/19 06:00 97.9 62 18 110/57 (74) 96 Room Air I&O- Last 24 Hours up to 6 AM 08/19/19 06:00 Intake Total 840 ml Output Total 750 ml Balance 90 ml Laboratory Data 24H LABS Laboratory Tests 2 08/18/19 11:33: Bedside Glucose (Misc Panel) 133H 08/18/19 16:33: Bedside Glucose (Misc Panel) 103 08/18/19 20:03: Bedside Glucose (Misc Panel) 229H 08/19/19 05:54: Bedside Glucose (Misc Panel) 120H GINNY CARRASCO MD Aug 19, 2019 10:03
[2019-08-19 14:00] VITALS: BP 122/79
[2019-08-19] MEDS: metFORMIN XR 500MG TAB *GLUCOPHAGE XR PO SCH (17:13)
[2019-08-19 20:00] VITALS: BP 125/67
[2019-08-19] MEDS: ATORVASTATIN 20 MG TAB PO SCH (21:58)
[2019-08-19] MEDS: FINASTERIDE 5 MG TAB PO SCH (21:58)
[2019-08-19] MEDS: VITAMIN D 1,000 INTERNATIONAL UNITS TABLET PO SCH (21:58)
[2019-08-19] MEDS: FLUoxetine 20 MG CAP PO SCH (21:59)
[2019-08-19] MEDS: ATENOLOL 50 MG TAB PO SCH (21:59)
[2019-08-19] MEDS: amLODIPine 5 MG TAB PO SCH (21:59)
[2019-08-19] MEDS: SENNA 8.6 MG TAB (SENOKOT) PO SCH (21:59)
[2019-08-19] MEDS: LEVEMIR (INSULIN DETEMIR) 1 UNITS/0.01ML SC SCH (22:00)
[2019-08-19] MEDS: OMEPRAZOLE 20 MG CAP PO SCH (22:04)
[2019-08-20 05:15] VITALS: BP 125/83
[2019-08-20] MEDS: HumaLOG INSULIN (NovoLOG) PER UNIT SC SCH ×4 (08:10→20:14)
[2019-08-20] MEDS: FUROSEMIDE 20 MG TAB PO SCH (08:12)
[2019-08-20] MEDS: DOCUSATE SODIUM 100 MG CAP PO SCH ×2 (08:12→20:13)
[2019-08-20] MEDS: SINEMET 25-100 MG TAB PO SCH ×3 (08:12→17:12)
[2019-08-20] MEDS: CLOPIDOGREL 75 MG TAB PO SCH (08:12)
--- NOTE | 2019-08-20 10:25 | IPNPDOC ---
Date Seen The patient was seen on 08/20/19. Progress Note SUBJECTIVE: Patient is ambulating, making progress with PT. No reported complaints. BP controlled. OBJECTIVE PHYSICAL EXAMINATION: VITAL SIGNS: Please see below. General: No acute distress, Alert Eyes: Normal sclera, EOMI, ROM HENT: Atraumatic Cardiovascular: Normal rate, normal rhythm. Pulmonary: Clear to auscultation b/l, no wheezing GI: Soft, nontender, nondistended Skin: Warm and dry Neuro: CN grossly intact. No focal deficits. Strengths equal b/l. Psych: oriented x 3 LABORATORY DATA, IMAGING STUDIES, MICROBIOLOGY: Please see below. ASSESSMENT AND PLAN: 1. Acute CVA - c/w PT/OT per Rehab. - no significant residual deficits appreciated. - c/w Plavix and statin. 2. HTN - On Norvasc 5 mg and Atenolol 50 mg daily. - monitor and adjust as needed. 3. HFpEF - c/w Lasix and fluid restriction 1800cc/day. 4. Recent hx of thrombocytopenia - Monitor platelets. No evidence of bleed. 5. Urinary retention - Intermittent. Resolved at this time. - c/w finasteride. VS, I&O, 24H, Fishbone Vital Signs/I&O Vital Signs Date Time Temp Pulse Resp B/P (MAP) Pulse Ox O2 Delivery O2 Flow Rate FiO2 08/20/19 05:15 99.4 65 17 125/83 (97) 95 Room Air I&O- Last 24 Hours up to 6 AM 08/20/19 06:00 Intake Total 1342 ml Output Total 850 ml Balance 492 ml Laboratory Data 24H LABS Laboratory Tests 2 08/19/19 11:58: Bedside Glucose (Misc Panel) 123H 08/19/19 16:52: Bedside Glucose (Misc Panel) 115H 08/19/19 20:33: Bedside Glucose (Misc Panel) 116H 08/20/19 05:24: Bedside Glucose (Misc Panel) 129H GINNY CARRASCO MD Aug 20, 2019 10:25
[2019-08-20 14:00] VITALS: BP 129/75
[2019-08-20] MEDS: metFORMIN XR 500MG TAB *GLUCOPHAGE XR PO SCH (17:12)
[2019-08-20 19:30] VITALS: BP 144/79
[2019-08-20] MEDS: LEVEMIR (INSULIN DETEMIR) 1 UNITS/0.01ML SC SCH (20:12)
[2019-08-20] MEDS: OMEPRAZOLE 20 MG CAP PO SCH (20:13)
[2019-08-20] MEDS: VITAMIN D 1,000 INTERNATIONAL UNITS TABLET PO SCH (20:13)
[2019-08-20] MEDS: ATORVASTATIN 20 MG TAB PO SCH (20:13)
[2019-08-20] MEDS: SENNA 8.6 MG TAB (SENOKOT) PO SCH (20:13)
[2019-08-20] MEDS: FLUoxetine 20 MG CAP PO SCH (20:13)
[2019-08-20] MEDS: ATENOLOL 50 MG TAB PO SCH (20:14)
[2019-08-20] MEDS: amLODIPine 5 MG TAB PO SCH (20:14)
[2019-08-20] MEDS: FINASTERIDE 5 MG TAB PO SCH (20:15)
[2019-08-21 05:05] VITALS: BP 136/71
[2019-08-21 05:46] LABS: HEMATOCRIT 37.3 % (42.0-52.0); HEMOGLOBIN 12.8 g/dl (13.5-17.5); MEAN CORPUSCULAR HEMOGLOBIN 29.8 pg (27.0-33.0); MEAN CORPUSCULAR HGB CONC 34.3 g/dl (32.0-36.5); MEAN CORPUSCULAR VOLUME 86.7 fl (80.0-96.0); PLATELET COUNT, AUTOMATED 111 10^3/uL (150-450); WHITE BLOOD COUNT 4.7 10^3/uL (4.0-10.0)
[2019-08-21] MEDS: HumaLOG INSULIN (NovoLOG) PER UNIT SC SCH ×4 (08:59→21:00)
[2019-08-21] MEDS: CLOPIDOGREL 75 MG TAB PO SCH (09:00)
[2019-08-21] MEDS: DOCUSATE SODIUM 100 MG CAP PO SCH ×2 (09:00→20:37)
[2019-08-21] MEDS: SINEMET 25-100 MG TAB PO SCH ×3 (09:02→17:33)
[2019-08-21] MEDS: FUROSEMIDE 20 MG TAB PO SCH (09:02)
--- NOTE | 2019-08-21 09:22 | IPNPDOC ---
Date Seen The patient was seen on 08/21/19. Progress Note SUBJECTIVE: Patient comfortable in bed and denies any complaints including pain/discomfort nor SOB. No acute events reported overnight. Afebrile. OBJECTIVE PHYSICAL EXAMINATION: VITAL SIGNS: Please see below. General: No acute distress, Alert Eyes: Normal sclera, EOMI, ROM HENT: Atraumatic Cardiovascular: Normal rate, normal rhythm. Pulmonary: Clear to auscultation b/l, no wheezing GI: Soft, nontender, nondistended Skin: Warm and dry Neuro: CN grossly intact. No focal deficits. Strengths equal b/l. Psych: oriented x 3 LABORATORY DATA, IMAGING STUDIES, MICROBIOLOGY: Please see below. ASSESSMENT AND PLAN: 1. Acute CVA - c/w PT/OT per Rehab. - no significant residual deficits appreciated. - c/w Plavix and statin. 2. HTN - On Norvasc 5 mg and Atenolol 50 mg daily. - monitor and adjust as needed. 3. HFpEF - c/w Lasix and fluid restriction 1800cc/day. 4. Recent hx of thrombocytopenia - Monitor platelets. No evidence of bleed. 5. Urinary retention - Intermittent. Resolved. - c/w finasteride. VS, I&O, 24H, Fishbone Vital Signs/I&O Vital Signs Date Time Temp Pulse Resp B/P (MAP) Pulse Ox O2 Delivery O2 Flow Rate FiO2 08/21/19 05:05 98.4 67 18 136/71 (92) 96 Room Air I&O- Last 24 Hours up to 6 AM 08/21/19 06:00 Intake Total 900 ml Output Total 1275 ml Balance -375 ml Laboratory Data 24H LABS Laboratory Tests 2 08/20/19 11:45: Bedside Glucose (Misc Panel) 144H 08/20/19 16:46: Bedside Glucose (Misc Panel) 106 08/20/19 19:34: Bedside Glucose (Misc Panel) 149H 08/21/19 05:09: Bedside Glucose (Misc Panel) 110 08/21/19 05:26: Nucleated Red Blood Cells % (auto) 0.0 CBC/BMP Laboratory Tests 08/21/19 05:26 GINNY CARRASCO MD Aug 21, 2019 09:22
[2019-08-21 14:00] VITALS: BP 124/70
[2019-08-21] MEDS: metFORMIN XR 500MG TAB *GLUCOPHAGE XR PO SCH (17:33)
[2019-08-21 20:00] VITALS: BP 124/74
[2019-08-21] MEDS: amLODIPine 5 MG TAB PO SCH (20:36)
[2019-08-21] MEDS: ATORVASTATIN 20 MG TAB PO SCH (20:36)
[2019-08-21] MEDS: FLUoxetine 20 MG CAP PO SCH (20:37)
[2019-08-21] MEDS: OMEPRAZOLE 20 MG CAP PO SCH (20:37)
[2019-08-21] MEDS: SENNA 8.6 MG TAB (SENOKOT) PO SCH (20:37)
[2019-08-21] MEDS: ATENOLOL 50 MG TAB PO SCH (20:37)
[2019-08-21] MEDS: guaiFENesin ER 600 MG TAB PO SCH (20:37)
[2019-08-21] MEDS: VITAMIN D 1,000 INTERNATIONAL UNITS TABLET PO SCH (20:37)
[2019-08-21] MEDS: FINASTERIDE 5 MG TAB PO SCH (20:38)
[2019-08-21] MEDS: LEVEMIR (INSULIN DETEMIR) 1 UNITS/0.01ML SC SCH (20:38)
[2019-08-22 06:00] VITALS: BP 148/78
[2019-08-22] MEDS: HumaLOG INSULIN (NovoLOG) PER UNIT SC SCH ×4 (07:55→20:37)
[2019-08-22] MEDS: SINEMET 25-100 MG TAB PO SCH ×3 (07:56→15:37)
[2019-08-22] MEDS: DOCUSATE SODIUM 100 MG CAP PO SCH ×2 (08:56→20:35)
[2019-08-22] MEDS: guaiFENesin ER 600 MG TAB PO SCH ×2 (08:56→20:35)
[2019-08-22] MEDS: CLOPIDOGREL 75 MG TAB PO SCH (08:56)
[2019-08-22] MEDS: FUROSEMIDE 20 MG TAB PO SCH (08:57)
[2019-08-22 11:50] LABS: BASO % 0.5 % (0.0-1.0); EOS # 0.1 10^3/uL (0.0-0.5); EOS % 2.1 % (0.0-3.0); HEMATOCRIT 35.6 % (42.0-52.0); HEMOGLOBIN 12.3 g/dl (13.5-17.5); LYMPH % 23.1 % (24.0-44.0); MEAN CORPUSCULAR HEMOGLOBIN 29.9 pg (27.0-33.0); MEAN CORPUSCULAR HGB CONC 34.6 g/dl (32.0-36.5); MEAN CORPUSCULAR VOLUME 86.4 fl (80.0-96.0); MONO # 0.4 10^3/uL (0.0-0.8); MONO % 9.6 % (0.0-5.0); NEUTROPHILS # 2.8 10^3/uL (1.5-8.5); NEUTROPHILS % 64.5 % (36.0-66.0); PLATELET COUNT, AUTOMATED 106 10^3/uL (150-450); RED BLOOD COUNT 4.12 10^6/uL (4.30-6.10); WHITE BLOOD COUNT 4.3 10^3/uL (4.0-10.0)
--- NOTE | 2019-08-22 12:06 | IPNPDOC ---
PM&R Progress Note DATE OF SERVICE: Aug 21, 2019 Printing Table Hand Progress Note Subjective: Patient reporting he feels more steady on his feet and that he is no longer shuffling. He believes the new medication is helping his gait. REVIEW OF SYSTEMS: The following is a completed review of systems and has been reviewed. Review of systems otherwise unremarkable. PAIN: Patient self reports no pain EYES: No recent vision changes EARS, NOSE, & THROAT: No throat pain, or dysphagia, or rhinorrhea CARDIOVASCULAR: Denies chest pain or palpitations. PULMONARY: Denies shortness of breath GASTROINTESTINAL: Denies constipation/diarrhea GENITOURINARY: +urinary retention (improving) MUSCULOSKELETAL:left sided weakness NEUROLOGICAL:left sided paresis HEMATOLOGICAL: denies easy bruising SKIN: no rash PSYCHIATRIC: Unremarkable All other review of systems found to be negative. VITAL SIGNS: Please see below. GENERAL: Pleasant and cooperative. No acute distress. obese HEENT: PERRL. Extraocular movements intact. Clear conjunctiva CARDIOVASCULAR: Regular rate and rhythm. No murmurs, rubs, or gallops LUNGS: Clear to auscultation bilaterally. No wheezes. No rhonchi ABDOMEN: Soft, nontender, nondistended. Positive bowel sounds. Normal active bowel sounds NEUROLOGICAL: Alert and oriented times three. Cranial nerves II through XII grossly intact. Sensation grossly intact in all 4 extremities (-) babinksi/clonus bilt (-) pronator drift (+) dysarthria EXTREMITIES:5\5 strength bilateral upper extremities. 5\5 strength right lower extremity. 5/5 strength in left lower extremity. (+) bilat LE edema (-) Ghada's SKIN: intact ASSESSMENT:74-year-old M with past medical history of HTN and diastolic CHF who presents status post stroke PLAN: 1. Rehab- PT/OT, advance gait training and ADL management, maintain ROM/stretch/strengthen bilat UE and LE, ambulating with acne 2. 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 Cardiac: pmh HTN c/u Amlodipine and atenolol- medicine consulted to assist in management -grade 1 diastolic CHF- c/u lasix, c/u fluid restrict to 1800cc and monitor for fluid overload -HLd c/u statin 4. Resp: encourage incentive spirometry, monitor for infection 5. Endo: pmh DM c/u metformin and ISS, adjust prn, consistent carb diet 6. Heme: thrombocytopenia- monitor, no signs of active bleeding, lovenox on hold 7. : new onset urinary retention, c/u finasteride and Bladder scans with PVRs-improving 8. DVT ppx: holding lovenox due to thrombocytopenia, dopplers negative for LE DVT, c/u TEDs 9. GI ppx: omeprazole 10. Full Code, discussed with patient 11. Dispo: TBD Allergies Coded Allergies: Sulfa (Sulfonamide Antibiotics) (Verified Allergy, Mild, HIVES, 08/12/19) Vital Signs Vital Signs Date Time Temp Pulse Resp B/P (MAP) Pulse Ox O2 Delivery O2 Flow Rate FiO2 08/22/19 06:00 98.0 64 17 148/78 (101) 98 Room Air Laboratory Data CBC/BMP Laboratory Tests 08/22/19 11:05 Labs 24H Laboratory Tests 2 08/21/19 16:33: Bedside Glucose (Misc Panel) 98 08/21/19 19:37: Bedside Glucose (Misc Panel) 144H 08/22/19 06:01: Bedside Glucose (Misc Panel) 110 08/22/19 11:05: Immature Granulocyte % (Auto) 0.2, Neutrophils (%) (Auto) 64.5, Lymphocytes (%) (Auto) 23.1L, Monocytes (%) (Auto) 9.6H, Eosinophils (%) (Auto) 2.1, Basophils (%) (Auto) 0.5, Neutrophils # (Auto) 2.8, Lymphocytes # (Auto) 1.0L, Monocytes # (Auto) 0.4, Eosinophils # (Auto) 0.1, Basophils # (Auto) 0.0, Nucleated Red Blood Cells % (auto) 0.0 08/22/19 11:12: Bedside Glucose (Misc Panel) 114H Current Medications Current Medications Current Medications Medications (Trade) Dose Ordered Sig/Denia Route PRN Reason Start Time Stop Time Status Last Admin Dose Admin Acetaminophen (Tylenol Tab) 650 mg Q4HP PRN PO MILD PAIN (PS 1-4) 08/15/19 15:15 Amlodipine Besylate (Norvasc) 5 mg DAILY@2100 PO 08/15/19 21:00 08/21/19 20:36 Atenolol (Tenormin) 50 mg QHS PO 08/15/19 21:00 08/21/19 20:37 Atorvastatin Calcium (Lipitor) 40 mg DAILY@2100 PO 08/16/19 21:00 08/21/19 20:36 Carbidopa/Levodopa (Sinemet 25/100) 0.5 tab TID@0800,1200,1600 PO 08/17/19 16:00 08/22/19 11:42 Clopidogrel Bisulfate (PLAVix) 75 mg DAILY PO 08/16/19 09:00 08/22/19 08:56 Dextrose (Dextrose 50%) 25 ml ASDIRECTED PRN IV SEE LABEL COMMENTS 08/15/19 15:15 Docusate Sodium (Colace) 100 mg BID PO 08/15/19 21:00 08/22/19 08:56 Enoxaparin Sodium (Lovenox) 40 mg DAILY SC 08/16/19 09:00 08/16/19 09:55 DC 08/16/19 07:46 Finasteride (Proscar) 5 mg QHS PO 08/15/19 21:00 08/21/19 20:38 Fluoxetine HCl (PROzac) 20 mg QHS PO 08/15/19 21:00 08/21/19 20:37 Furosemide (Lasix) 20 mg DAILY PO 08/17/19 09:00 08/22/19 08:57 Furosemide (Lasix) 20 mg DAILY@2100 PO 08/15/19 21:00 08/16/19 15:48 DC 08/15/19 21:09 Glucagon (Glucagon) 1 mg ASDIRECTED PRN SC SEE LABEL COMMENTS 08/15/19 15:15 Glucose (Glucose) 16 GM ASDIRECTED PRN PO SEE LABEL COMMENTS 08/15/19 15:15 Guaifenesin (Mucinex Tab Er) 600 mg BID PO 08/21/19 21:00 12/2/19 08:56 Insulin Detemir (Levemir Insulin) 5 units QHS SC 08/15/19 21:00 08/21/19 20:38 Insulin Human Lispro (HumaLOG INSULIN) SEE PROTOCOL TABLE AC SC 08/15/19 17:30 08/22/19 11:42 Insulin Human Lispro (HumaLOG INSULIN) SEE PROTOCOL TABLE QHS SC 08/15/19 21:00 Magnesium Hydroxide (Milk Of Magnesia) 30 ml DAILYPRN PRN PO CONSTIPATION 08/15/19 15:15 Metformin HCl (Glucophage Xr) 500 mg DAILY@18 PO 08/15/19 18:00 08/21/19 17:33 Miscellaneous (Unresolved Clarification Entry) SEE LABEL COMMENTS DAILY XX 08/15/19 09:00 08/15/19 17:35 DC Omeprazole (PriLOSEC) 20 mg QHS PO 08/15/19 21:00 08/22/19 10:57 DC 08/21/19 20:37 Omeprazole (PriLOSEC) 20 mg QHS PO 08/15/19 21:00 UNV Senna (Senokot) 1 tab QHS PO 08/15/19 21:00 08/21/19 20:37 Vitamin D (Vitamin D) 1,000 units DAILY@2100 PO 08/15/19 21:00 08/21/19 20:37 JAYNE FERNANDEZ MD Aug 22, 2019 12:05
--- NOTE | 2019-08-22 12:07 | IPNPDOC ---
PM&R Progress Note DATE OF SERVICE: Aug 22, 2019 Infant Room Teacher Progress Note Subjective: Patient reporting he feels well today and is looking forward to going home. He does not have any complaints today. REVIEW OF SYSTEMS: The following is a completed review of systems and has been reviewed. Review of systems otherwise unremarkable. PAIN: Patient self reports no pain EYES: No recent vision changes EARS, NOSE, & THROAT: No throat pain, or dysphagia, or rhinorrhea CARDIOVASCULAR: Denies chest pain or palpitations. PULMONARY: Denies shortness of breath GASTROINTESTINAL: Denies constipation/diarrhea GENITOURINARY: +urinary retention (improving) MUSCULOSKELETAL:left sided weakness NEUROLOGICAL:left sided paresis HEMATOLOGICAL: denies easy bruising SKIN: no rash PSYCHIATRIC: Unremarkable All other review of systems found to be negative. VITAL SIGNS: Please see below. GENERAL: Pleasant and cooperative. No acute distress. obese HEENT: PERRL. Extraocular movements intact. Clear conjunctiva CARDIOVASCULAR: Regular rate and rhythm. No murmurs, rubs, or gallops LUNGS: Clear to auscultation bilaterally. No wheezes. No rhonchi ABDOMEN: Soft, nontender, nondistended. Positive bowel sounds. Normal active bowel sounds NEUROLOGICAL: Alert and oriented times three. Cranial nerves II through XII grossly intact. Sensation grossly intact in all 4 extremities (-) babinksi/clonus bilt (-) pronator drift (+) dysarthria EXTREMITIES:5\5 strength bilateral upper extremities. 5\5 strength right lower extremity. 5/5 strength in left lower extremity. (+) bilat LE edema (-) Ghada's SKIN: intact ASSESSMENT:74-year-old M with past medical history of HTN and diastolic CHF who presents status post stroke PLAN: 1. Rehab- PT/OT, advance gait training and ADL management, maintain ROM/stretch/strengthen bilat UE and LE, ambulating further with acne 2. Neuro: s/p corpus callosum infarct with RUE weakness and dysarthria- c/u Plavix, statin, and BP control for secondary stroke prevention -c/u prozac for motor recovery -f/u neurology outpatient -patient noted to be shuffling in therapy, given his hx of recent falls, hypophonia, and micrographia, was started on low dose Sinemet with notable improvement in his shuffling gait, he reports his legs feel less wobbly- given clinical response to dopamine therapy, highly suspect mild parkinsonism, will need neuro f/u -recent CTH negative for NPH to explain shuffling gait 3. Cardiac: pmh HTN c/u Amlodipine and atenolol- medicine consulted to assist in management -grade 1 diastolic CHF- c/u lasix, c/u fluid restrict to 1800cc and monitor for fluid overload -HLd c/u statin 4. Resp: encourage incentive spirometry, monitor for infection 5. Endo: pmh DM c/u metformin and ISS, adjust prn, consistent carb diet 6. Heme: thrombocytopenia- monitor, no signs of active bleeding, lovenox on hold 7. : new onset urinary retention, c/u finasteride and Bladder scans with PVRs- improving 8. DVT ppx: holding lovenox due to thrombocytopenia, dopplers negative for LE DVT, c/u TEDs 9. GI ppx: omeprazole 10. Full Code, discussed with patient 11. Dispo: TBD Allergies Coded Allergies: Sulfa (Sulfonamide Antibiotics) (Verified Allergy, Mild, HIVES, 08/12/19) Vital Signs Vital Signs Date Time Temp Pulse Resp B/P (MAP) Pulse Ox O2 Delivery O2 Flow Rate FiO2 08/22/19 06:00 98.0 64 17 148/78 (101) 98 Room Air Laboratory Data CBC/BMP Laboratory Tests 08/22/19 11:05 Labs 24H Laboratory Tests 2 08/21/19 16:33: Bedside Glucose (Misc Panel) 98 08/21/19 19:37: Bedside Glucose (Misc Panel) 144H 08/22/19 06:01: Bedside Glucose (Misc Panel) 110 08/22/19 11:05: Immature Granulocyte % (Auto) 0.2, Neutrophils (%) (Auto) 64.5, Lymphocytes (%) (Auto) 23.1L, Monocytes (%) (Auto) 9.6H, Eosinophils (%) (Auto) 2.1, Basophils (%) (Auto) 0.5, Neutrophils # (Auto) 2.8, Lymphocytes # (Auto) 1.0L, Monocytes # (Auto) 0.4, Eosinophils # (Auto) 0.1, Basophils # (Auto) 0.0, Nucleated Red Blood Cells % (auto) 0.0 08/22/19 11:12: Bedside Glucose (Misc Panel) 114H Current Medications Current Medications Current Medications Medications (Trade) Dose Ordered Sig/Denia Route PRN Reason Start Time Stop Time Status Last Admin Dose Admin Acetaminophen (Tylenol Tab) 650 mg Q4HP PRN PO MILD PAIN (PS 1-4) 08/15/19 15:15 Amlodipine Besylate (Norvasc) 5 mg DAILY@2100 PO 08/15/19 21:00 08/21/19 20:36 Atenolol (Tenormin) 50 mg QHS PO 08/15/19 21:00 08/21/19 20:37 Atorvastatin Calcium (Lipitor) 40 mg DAILY@2100 PO 08/16/19 21:00 08/21/19 20:36 Carbidopa/Levodopa (Sinemet 25/100) 0.5 tab TID@0800,1200,1600 PO 08/17/19 16:00 08/22/19 11:42 Clopidogrel Bisulfate (PLAVix) 75 mg DAILY PO 08/16/19 09:00 08/22/19 08:56 Dextrose (Dextrose 50%) 25 ml ASDIRECTED PRN IV SEE LABEL COMMENTS 08/15/19 15:15 Docusate Sodium (Colace) 100 mg BID PO 08/15/19 21:00 08/22/19 08:56 Enoxaparin Sodium (Lovenox) 40 mg DAILY SC 08/16/19 09:00 08/16/19 09:55 DC 08/16/19 07:46 Finasteride (Proscar) 5 mg QHS PO 08/15/19 21:00 08/21/19 20:38 Fluoxetine HCl (PROzac) 20 mg QHS PO 08/15/19 21:00 08/21/19 20:37 Furosemide (Lasix) 20 mg DAILY PO 08/17/19 09:00 08/22/19 08:57 Furosemide (Lasix) 20 mg DAILY@2100 PO 08/15/19 21:00 08/16/19 15:48 DC 08/15/19 21:09 Glucagon (Glucagon) 1 mg ASDIRECTED PRN SC SEE LABEL COMMENTS 08/15/19 15:15 Glucose (Glucose) 16 GM ASDIRECTED PRN PO SEE LABEL COMMENTS 08/15/19 15:15 Guaifenesin (Mucinex Tab Er) 600 mg BID PO 08/21/19 21:00 08/22/19 08:56 Insulin Detemir (Levemir Insulin) 5 units QHS SC 08/15/19 21:00 08/21/19 20:38 Insulin Human Lispro (HumaLOG INSULIN) SEE PROTOCOL TABLE AC SC 08/15/19 17:30 08/22/19 11:42 Insulin Human Lispro (HumaLOG INSULIN) SEE PROTOCOL TABLE QHS SC 08/15/19 21:00 Magnesium Hydroxide (Milk Of Magnesia) 30 ml DAILYPRN PRN PO CONSTIPATION 08/15/19 15:15 Metformin HCl (Glucophage Xr) 500 mg DAILY@18 PO 08/15/19 18:00 08/21/19 17:33 Miscellaneous (Unresolved Clarification Entry) SEE LABEL COMMENTS DAILY XX 08/15/19 09:00 08/15/19 17:35 DC Omeprazole (PriLOSEC) 20 mg QHS PO 08/15/19 21:00 08/22/19 10:57 DC 08/21/19 20:37 Omeprazole (PriLOSEC) 20 mg QHS PO 08/15/19 21:00 UNV Senna (Senokot) 1 tab QHS PO 08/15/19 21:00 08/21/19 20:37 Vitamin D (Vitamin D) 1,000 units DAILY@2100 PO 08/15/19 21:00 08/21/19 20:37 JAYNE FERNANDEZ MD Aug 22, 2019 12:07
[2019-08-22 12:38] LABS: BLOOD UREA NITROGEN 17 MG/DL (7-18); CALCIUM LEVEL 8.9 MG/DL (8.8-10.2); CARBON DIOXIDE LEVEL 23 MEQ/L (21-32); CHLORIDE LEVEL 106 MEQ/L (98-107); CREATININE FOR GFR 0.87 MG/DL (0.70-1.30); GLOMERULAR FILTRATION RATE > 60.0 (>42); GLUCOSE, FASTING 116 MG/DL (70-100); POTASSIUM SERUM 3.8 MEQ/L (3.5-5.1); SODIUM LEVEL 139 MEQ/L (136-145)
[2019-08-22 14:00] VITALS: BP 136/61
[2019-08-22] MEDS: metFORMIN XR 500MG TAB *GLUCOPHAGE XR PO SCH (17:27)
--- NOTE | 2019-08-22 19:07 | IPNPDOC ---
Date Seen The patient was seen on 08/22/19. Progress Note SUBJECTIVE: Patient states that he feels well and does not report any discomfort. States that he is ambulating well and looking forward to going home this week. OBJECTIVE PHYSICAL EXAMINATION: VITAL SIGNS: Please see below. General: No acute distress, Alert Eyes: Normal sclera, EOMI, ROM HENT: Atraumatic Cardiovascular: Normal rate, normal rhythm. Pulmonary: Clear to auscultation b/l, no wheezing GI: Soft, nontender, nondistended Skin: Warm and dry Neuro: CN grossly intact. No focal deficits. Strengths equal b/l. Psych: oriented x 3 LABORATORY DATA, IMAGING STUDIES, MICROBIOLOGY: Please see below. ASSESSMENT AND PLAN: 1. Acute CVA - c/w PT/OT per Rehab. - no significant residual deficits appreciated. - c/w Plavix and statin. 2. HTN - On Norvasc 5 mg and Atenolol 50 mg daily. - monitor and adjust as needed. 3. HFpEF - c/w Lasix and fluid restriction 1800cc/day. 4. Recent hx of thrombocytopenia - Monitor platelets. No evidence of bleed. 5. Urinary retention - Intermittent. Resolved. - c/w finasteride. VS, I&O, 24H, Fishbone Vital Signs/I&O Vital Signs Date Time Temp Pulse Resp B/P (MAP) Pulse Ox O2 Delivery O2 Flow Rate FiO2 08/22/19 14:00 97.7 70 18 136/61 (86) 97 Room Air I&O- Last 24 Hours up to 6 AM 08/22/19 06:00 Intake Total 700 ml Output Total 925 ml Balance -225 ml Laboratory Data 24H LABS Laboratory Tests 2 08/21/19 19:37: Bedside Glucose (Misc Panel) 144H 08/22/19 06:01: Bedside Glucose (Misc Panel) 110 08/22/19 11:05: Immature Granulocyte % (Auto) 0.2, Neutrophils (%) (Auto) 64.5, Lymphocytes (%) (Auto) 23.1L, Monocytes (%) (Auto) 9.6H, Eosinophils (%) (Auto) 2.1, Basophils (%) (Auto) 0.5, Neutrophils # (Auto) 2.8, Lymphocytes # (Auto) 1.0L, Monocytes # (Auto) 0.4, Eosinophils # (Auto) 0.1, Basophils # (Auto) 0.0, Nucleated Red Bloo d Cells % (auto) 0.0, Anion Gap 10, Glomerular Filtration Rate > 60.0, Calcium Level 8.9 08/22/19 11:12: Bedside Glucose (Misc Panel) 114H 08/22/19 16:38: Bedside Glucose (Misc Panel) 132H CBC/BMP Laboratory Tests 08/22/19 11:05 GINNY CARRASCO MD Aug 22, 2019 19:07
[2019-08-22 20:00] VITALS: BP 129/71
[2019-08-22] MEDS: LEVEMIR (INSULIN DETEMIR) 1 UNITS/0.01ML SC SCH (20:34)
[2019-08-22] MEDS: amLODIPine 5 MG TAB PO SCH (20:35)
[2019-08-22] MEDS: VITAMIN D 1,000 INTERNATIONAL UNITS TABLET PO SCH (20:35)
[2019-08-22] MEDS: ATORVASTATIN 20 MG TAB PO SCH (20:35)
[2019-08-22] MEDS: FLUoxetine 20 MG CAP PO SCH (20:35)
[2019-08-22] MEDS: ATENOLOL 50 MG TAB PO SCH (20:36)
[2019-08-22] MEDS: FINASTERIDE 5 MG TAB PO SCH (20:37)
[2019-08-22] MEDS: SENNA 8.6 MG TAB (SENOKOT) PO SCH (20:38)
[2019-08-23 06:00] VITALS: BP 125/60
[2019-08-23] MEDS: CLOPIDOGREL 75 MG TAB PO SCH (08:43)
[2019-08-23] MEDS: HumaLOG INSULIN (NovoLOG) PER UNIT SC SCH ×4 (08:43→21:00)
[2019-08-23] MEDS: guaiFENesin ER 600 MG TAB PO SCH ×2 (08:43→23:03)
[2019-08-23] MEDS: SINEMET 25-100 MG TAB PO SCH ×3 (08:44→17:26)
[2019-08-23] MEDS: FUROSEMIDE 20 MG TAB PO SCH (08:44)
[2019-08-23] MEDS: DOCUSATE SODIUM 100 MG CAP PO SCH ×2 (08:44→23:03)
[2019-08-23] MEDS: metFORMIN XR 500MG TAB *GLUCOPHAGE XR PO SCH (17:25)
[2019-08-23 20:00] VITALS: BP 133/74
[2019-08-23] MEDS: FINASTERIDE 5 MG TAB PO SCH (21:00)
[2019-08-23] MEDS: FLUoxetine 20 MG CAP PO SCH (23:03)
[2019-08-23] MEDS: VITAMIN D 1,000 INTERNATIONAL UNITS TABLET PO SCH (23:03)
[2019-08-23] MEDS: amLODIPine 5 MG TAB PO SCH (23:03)
[2019-08-23] MEDS: SENNA 8.6 MG TAB (SENOKOT) PO SCH (23:03)
[2019-08-23] MEDS: ATORVASTATIN 20 MG TAB PO SCH (23:04)
[2019-08-23 23:05] VITALS: BP 133/74
[2019-08-23] MEDS: LEVEMIR (INSULIN DETEMIR) 1 UNITS/0.01ML SC SCH (23:05)
[2019-08-23] MEDS: ATENOLOL 50 MG TAB PO SCH (23:05)
[2019-08-24 06:00] VITALS: BP 135/65
[2019-08-24 07:40] LABS: HEMATOCRIT 38.3 % (42.0-52.0); HEMOGLOBIN 12.7 g/dl (13.5-17.5); MEAN CORPUSCULAR HEMOGLOBIN 29.5 pg (27.0-33.0); MEAN CORPUSCULAR HGB CONC 33.2 g/dl (32.0-36.5); MEAN CORPUSCULAR VOLUME 88.9 fl (80.0-96.0); PLATELET COUNT, AUTOMATED 108 10^3/uL (150-450); RED BLOOD COUNT 4.31 10^6/uL (4.30-6.10); WHITE BLOOD COUNT 4.3 10^3/uL (4.0-10.0)
[2019-08-24] MEDS: SINEMET 25-100 MG TAB PO SCH (09:01)
[2019-08-24] MEDS: FUROSEMIDE 20 MG TAB PO SCH (09:02)
[2019-08-24] MEDS: guaiFENesin ER 600 MG TAB PO SCH (09:02)
[2019-08-24] MEDS: DOCUSATE SODIUM 100 MG CAP PO SCH (09:02)
[2019-08-24] MEDS: CLOPIDOGREL 75 MG TAB PO SCH (09:02)
[2019-08-24] MEDS: HumaLOG INSULIN (NovoLOG) PER UNIT SC SCH (09:02)
[2019-08-24] MEDS ORDERED: FLUO20CA19 PO (10:23)
[2019-08-24] MEDS ORDERED: CLOP75TA2 PO (10:23)
[2019-08-24] MEDS ORDERED: FURO20TA2 PO (10:23)
[2019-08-24] MEDS ORDERED: GLUCTAB PO (10:23)
[2019-08-24] MEDS ORDERED: FINA5TAB2 PO (10:23)
[2019-08-24] MEDS ORDERED: CHOL100029 PO (10:24)
[2019-08-24] MEDS ORDERED: AMLO5TAB6 PO (10:24)
[2019-08-24] MEDS ORDERED: CARB25TA9 PO (10:24)
[2019-08-24] MEDS ORDERED: ATOR1TAB21 PO (10:24)
[2019-08-24] MEDS ORDERED: ATEN50TA2 PO (10:24)
--- NOTE | 2019-08-24 11:47 | IPNPDOC ---
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 REVIEW OF SYSTEMS: The following is a completed review of systems and has been r maria isabeliewed. Review of systems otherwise unremarkable. PAIN: Patient self reports no pain EYES: No recent vision changes EARS, NOSE, & THROAT: No throat pain, or dysphagia, or rhinorrhea CARDIOVASCULAR: Denies chest pain or palpitations. PULMONARY: Denies shortness of breath GASTROINTESTINAL: Denies constipation/diarrhea GENITOURINARY: +urinary retention (improving) MUSCULOSKELETAL:left sided weakness NEUROLOGICAL:left sided paresis HEMATOLOGICAL: denies easy bruising SKIN: no rash PSYCHIATRIC: Unremarkable All other review of systems found to be negative. VITAL SIGNS: Please see below. GENERAL: Pleasant and cooperative. No acute distress. obese HEENT: PERRL. Extraocular movements intact. Clear conjunctiva CARDIOVASCULAR: Regular rate and rhythm. No murmurs, rubs, or gallops LUNGS: Clear to auscultation bilaterally. No wheezes. No rhonchi ABDOMEN: Soft, nontender, nondistended. Positive bowel sounds. Normal active bowel sounds NEUROLOGICAL: Alert and oriented times three. Cranial nerves II through XII grossly intact. Sensation grossly intact in all 4 extremities (-) babinksi/clonus bilt (-) pronator drift (+) dysarthria EXTREMITIES:5\5 strength bilateral upper extremities. 5\5 strength right lower extremity. 5/5 strength in left lower extremity. (+) bilat LE edema (-) Ghada's SKIN: intact ASSESSMENT:74-year-old M with past medical history of HTN and diastolic CHF who presents status post stroke PLAN: 1. Rehab- PT/OT, advance gait training and ADL management, maintain R OM/stretch/strengthen bilat UE and LE, ambulating further with cane 2. Neuro: s/p corpus callosum infarct with RUE weakness and dysarthria- c/u Plavix, statin, and BP control for secondary stroke prevention -c/u prozac for motor recovery -f/u neurology outpatient -patient noted to be shuffling in therapy, given his hx of recent falls, hypophonia, and micrographia, was started on low dose Sinemet with notable improvement in his shuffling gait, he reports his legs feel less wobbly- given clinical response to dopamine therapy, highly suspect mild parkinsonism, will need neuro f/u, c/u low dose Sinemet- reduced left arm swing noted today on exam while walking with a cane -recent CTH negative for NPH to explain shuffling gait 3. Cardiac: pmh HTN c/u Amlodipine and atenolol- medicine consulted to assist in management -grade 1 diastolic CHF- c/u lasix, c/u fluid restrict to 1800cc and monitor for fluid overload -HLd c/u statin 4. Resp: encourage incentive spirometry, monitor for infection 5. Endo: pmh DM c/u metformin and ISS, adjust prn, consistent carb diet 6. Heme: thrombocytopenia- monitor, no signs of active bleeding, lovenox on hold 7. : new onset urinary retention, c/u finasteride and Bladder scans with PVRs- improving 8. DVT ppx: holding lovenox due to thrombocytopenia, dopplers negative for LE DVT, c/u TEDs 9. GI ppx: omeprazole- holding due to throbocytopenia 10. Full Code, discussed with patient 11. Dispo: 08-24-19 to home, progressing towards goals Allergies Coded Allergies: Sulfa (Sulfonamide Antibiotics) (Verified Allergy, Mild, HIVES, 08/12/19) Vital Signs Vital Signs Date Time Temp Pulse Resp B/P (MAP) Pulse Ox O2 Delivery O2 Flow Rate FiO2 08/24/19 06:00 97.6 71 19 135/65 (88) 94 Room Air Laboratory Data CBC/BMP Laboratory Tests 08/24/19 06:59 Labs 24H Laboratory Tests 2 08/23/19 16:49: Bedside Glucose (Misc Panel) 111H 08/23/19 20:27: Bedside Glucose (Misc Panel) 104 08/24/19 05:59: Bedside Glucose (Misc Panel) 103 08/24/19 06:59: Nucleated Red Blood Cells % (auto) 0.0 Current Medications Current Medications Current Medications Medications (Trade) Dose Ordered Sig/Denia Route PRN Reason Start Time Stop Time Status Last Admin Dose Admin Acetaminophen (Tylenol Tab) 650 mg Q4HP PRN PO MILD PAIN (PS 1-4) 08/15/19 15:15 Amlodipine Besylate (Norvasc) 5 mg DAILY@2100 PO 08/15/19 21:00 08/23/19 23:03 Atenolol (Tenormin) 50 mg QHS PO 08/15/19 21:00 08/23/19 23:05 Atorvastatin Calcium (Lipitor) 40 mg DAILY@2100 PO 08/16/19 21:00 08/23/19 23:04 Carbidopa/Levodopa (Sinemet 25/100) 0.5 tab TID@0800,1200,1600 PO 08/17/19 16:00 08/24/19 09:01 Clopidogrel Bisulfate (PLAVix) 75 mg DAILY PO 08/16/19 09:00 08/24/19 09:02 Dextrose (Dextrose 50%) 25 ml ASDIRECTED PRN IV SEE LABEL COMMENTS 08/15/19 15:15 Docusate Sodium (Colace) 100 mg BID PO 08/15/19 21:00 08/24/19 09:02 Enoxaparin Sodium (Lovenox) 40 mg DAILY SC 08/16/19 09:00 08/16/19 09:55 DC 08/16/19 07:46 Finasteride (Proscar) 5 mg QHS PO 08/15/19 21:00 08/23/19 21:00 Fluoxetine HCl (PROzac) 20 mg QHS PO 08/15/19 21:00 08/23/19 23:03 Furosemide (Lasix) 20 mg DAILY PO 08/17/19 09:00 08/24/19 09:02 Furosemide (Lasix) 20 mg DAILY@2100 PO 08/15/19 21:00 08/16/19 15:48 DC 08/15/19 21:09 Glucagon (Glucagon) 1 mg ASDIRECTED PRN SC SEE LABEL COMMENTS 08/15/19 15:15 Glucose (Glucose) 16 GM ASDIRECTED PRN PO SEE LABEL COMMENTS 08/15/19 15:15 Guaifenesin (Mucinex Tab Er) 600 mg BID PO 08/21/19 21:00 08/24/19 09:02 Insulin Detemir (Levemir Insulin) 5 units QHS SC 08/15/19 21:00 08/23/19 23:05 Insulin Human Lispro (HumaLOG INSULIN) SEE PROTOCOL TABLE AC SC 08/15/19 17:30 08/24/19 09:02 Insulin Human Lispro (HumaLOG INSULIN) SEE PROTOCOL TABLE QHS SC 08/15/19 21:00 Magnesium Hydroxide (Milk Of Magnesia) 30 ml DAILYPRN PRN PO CONSTIPATION 08/15/19 15:15 Metformin HCl (Glucophage Xr) 500 mg DAILY@18 PO 08/15/19 18:00 08/23/19 17:25 Miscellaneous (Unresolved Clarification Entry) SEE LABEL COMMENTS DAILY XX 08/15/19 09:00 08/15/19 17:35 DC Omeprazole (PriLOSEC) 20 mg QHS PO 08/15/19 21:00 08/22/19 10:57 DC 08/21/19 20:37 Omeprazole (PriLOSEC) 20 mg QHS PO 08/15/19 21:00 UNV Senna (Senokot) 1 tab QHS PO 08/15/19 21:00 08/23/19 23:03 Vitamin D (Vitamin D) 1,000 units DAILY@2100 PO 08/15/19 21:00 08/23/19 23:03 JAYNE FERNANDEZ MD Aug 24, 2019 11:47
--- NOTE | 2019-08-24 12:32 | PMRDS ---
DATE OF ADMISSION: 08/15/2019 DATE OF DISCHARGE: 08/24/2019 CHIEF COMPLAINT/DISCHARGE DIAGNOSES: Stroke and Parkinson disease. HISTORY OF PRESENT ILLNESS: 74-year-old man with a past medical history of hypertension, hyperlipidemia, chronic lower extremity edema in setting of suspected congestive heart failure (CHF), diabetes type 2, gastroesophageal reflux disease (GERD), BPH presented to [facility] Emergency Department (ED) on 08/12/2019 complaining of weakness in his legs and new onset right upper extremity weakness with dysarthria. CTH was negative for acute intracranial bleed. An MRI on 08/13/2019 showed "there is a mild punctate foci of high signal abnormality within the splenium of the corpus callosum on the diffusion sequence consistent with an acute infarct...scattered nonspecific foci on high signal abnormality in the guzman radiata and central semiovale...may represent areas of gliosis, demyelination, and/or chronic ." He was evaluated by neurology, who recommended only Plavix therapy in addition to a statin. Echo was also performed showing "borderline concentric left ventricular hypertrophy. Normal regional LV wall motion and wall thickening. Normal LV systolic function. Left ventricular ejection fraction 60% by visual estimate. Grade 1 LV diastolic dysfunction." Carotid ultrasound showed, "mild bilateral stenosis in the proximal ICAs using SRU criteria." He developed thrombocytopenia with platelets of 124 and anemia, hemoglobin 12.6 and, in addition, had considerable deficits in mobility, activities of daily living (ADLs). He was deemed medically appropriate for discharge to ARU on 08/15/2019. PAST MEDICAL HISTORY: As per history of present illness (HPI). HOSPITAL COURSE: The patient was admitted and enrolled in a comprehensive physical therapy (PT)/occupational therapy (OT), speech, language pathology program. He received 24-hour nursing supervision, and weekly team meetings were held to discuss his progress. For his recent stroke, the patient was started on Prozac for motor recovery. He was noted to have a shuffling gait in therapy with a reported history of 12 falls in the past year, self-reported hypophonia, and micrographia, in addition to decrease arm swing on the left, and was started on low-dose Sinemet with notable improvement in his shuffling gait and overall bradykinesia. The patient was instructed to followup with neurology for his new diagnosis/clinical suspicion for Parkinson disease. Of note, CTH was negative for normal pressure hydrocephalus to explain shuffling gait. He was maintained on a fluid restriction and Lasix in the setting of grade 1 diastolic dysfunction, and his Lovenox and omeprazole were discontinued in the setting of thrombocytopenia, which remained relatively stable around 100. Dopplers were negative for lower extremity deep venous thromboses (DVTs), continue with thromboembolism deterrents (TEDs) for DVT prophylaxis. He was deemed medically and functionally stable to return home. DISCHARGE MEDICATIONS: As per instructions. FUNCTIONAL HISTORY ON DISCHARGE: The patient was modified independent for ambulation, using a cane, able to ambulate 300 feet and negotiate stairs. In occupational therapy, he was modified independent as well. Thank you for this referral.
== END 2019-08-24 11:40 | disposition home or self-care (01) | DRG 57 ==
LOC: M PM&R 14:45
PROVIDERS: ADMIT Physical Medicine & Rehabilitation; ATTEND Physical Medicine & Rehabilitation
DX: I69.354 Hemiplegia and hemiparesis following cerebral infarction affecting left non-dominant side (principal); I50.32 Chronic diastolic (congestive) heart failure; I11.0 Hypertensive heart disease with heart failure; E11.9 Type 2 diabetes mellitus without complications; N40.1 Benign prostatic hyperplasia with lower urinary tract symptoms; R33.9 Retention of urine, unspecified; K21.9 Gastro-esophageal reflux disease without esophagitis; D69.6 Thrombocytopenia, unspecified; I69.322 Dysarthria following cerebral infarction; Z79.4 Long term (current) use of insulin; Z79.899 Other long term (current) drug therapy; Z88.2 Allergy status to sulfonamides; G20 Parkinson's disease; E78.5 Hyperlipidemia, unspecified; E55.9 Vitamin D deficiency, unspecified; K59.00 Constipation, unspecified; F41.9 Anxiety disorder, unspecified

== ENCOUNTER 2019-09-12 08:39 | Outpatient (RCR) | payer MEDICARE, OTHER ==
[~2019-09-12 08:39] MED LIST changes: +CARB25TA9 PO; +FLUO20CA19 PO; +GLUCTAB PO; +OMEP-172 PO; -OMEP20CA4 PO
== END 2019-09-20 ==
LOC: M PT 08:39
PROVIDERS: ATTEND Internal Medicine
DX: R26.9 Unspecified abnormalities of gait and mobility (principal)

== ENCOUNTER → 2019-11-23 | Outpatient (REF) | payer MEDICARE, OTHER ==
[~2019-11-23] MED LIST changes: -FLUO20CA19 PO; +FLUO20CA22 PO; -OMEP-172 PO; +OMEP1CAP73 PO
[2019-11-23 13:42] LABS: RHEUMATOID FACTOR QUANT 87.6 IU/ML (<15.0)
[2019-11-23 13:51] LABS: TOTAL PROTEIN 7.3 GM/DL (6.4-8.2)
[2019-11-23 14:36] LABS: HEPATITIS C VIRUS ABY INDEX 0.1 INDEX (<0.8)
[2019-11-24 11:22] LABS: ALBUMIN 3.57 GM/DL (3.29-5.55); ALBUMIN % 48.9 % (55.8-66.1); ALPHA-1-GLOBULIN % 4.1 % (2.9-4.9); ALPHA-2-GLOBULINS 0.73 GM/DL (0.42-0.99); BETA-1-GLOBULINS 0.54 GM/DL (0.28-0.60); BETA-1-GLOBULINS % 7.4 % (4.7-7.2); BETA-2-GLOBULINS 0.45 GM/DL (0.19-0.55); BETA-2-GLOBULINS % 6.1 % (3.2-6.5); GAMMA GLOBULIN % 23.5 % (11.1-18.8); GAMMA GLOBULINS 1.72 GM/DL (0.65-1.58)
[2019-11-25 00:08] LABS: CYCLIC CITRULLINATED PEPTIDE 9 units (0-19); SSA SJOGRENS A <0.2 AI (0.0-0.9); SSB SJOGRENS B <0.2 AI (0.0-0.9)
== END ==
LOC: M SFHCRHEU 11:03
PROVIDERS: ATTEND Internal Medicine
DX: R76.8 Other specified abnormal immunological findings in serum (principal)

== ENCOUNTER 2020-06-29 10:05 | Emergency (ER) | payer MEDICARE, OTHER ==
[~2020-06-29] VITALS: Ht 182.9 cm; Wt 113.2 kg
[~2020-06-29 10:05] MED LIST changes: -AMLO10TA5 PO; +AMLO1TAB24 PO; +AMLO1TAB25 PO; -AMLO5TAB6 PO; +CHOL25TA2 PO; -METF-791 PO; +METF-838 PO
--- NOTE | 2020-06-29 10:43 | REPVR ---
PROCEDURE INFORMATION: Exam: CT Head Without Contrast Exam date and time: 06/29/2020 10:27 AM Age: 74 years old Clinical indication: Walking, difficulty; Additional info: CVA - nursing interventions must not delay CT TECHNIQUE: Imaging protocol: Computed tomography of the head without contrast. Radiation optimization: All CT scans at this facility use at least one of these dose optimization techniques: automated exposure control; mA and/or kV adjustment per patient size (includes targeted exams where dose is matched to clinical indication); or iterative reconstruction. Other technique: STROKE PROTOCOL was implemented. COMPARISON: CT Head without contrast 08/12/2019 2:19 PM FINDINGS: Brain: There is no acute intracranial hemorrhage or mass effect. Mild diffuse volume loss is within the range of normal for patient age. There are small vessel ischemic changes within the periventricular and subcortical white matter, but the normal guzman/white matter delineation is maintained. There is an arachnoid cyst along the floor of the left middle cranial fossa. Cerebral ventricles: No ventriculomegaly. Bones/joints: Unremarkable. No acute fracture. Paranasal sinuses: Visualized sinuses are unremarkable. No fluid levels. Mastoid air cells: Visualized mastoid air cells are well aerated. Soft tissues: Unremarkable. IMPRESSION: No acute hemorrhage or edema. ASSESSMENT: ASPECTS ([facility] Stroke Program Early CT Score) is 10. Electronically signed by: Vibha Cristobal On 06/29/2020 10:43:03 AM
[2020-06-29] MEDS ORDERED: GLIP10TA PO (10:49)
[2020-06-29] MEDS ORDERED: GABA-1171 PO (10:49)
[2020-06-29] MEDS ORDERED: HYDR12.55 PO (10:49)
[2020-06-29 10:50] LABS: BASO % 0.3 % (0.0-1.0); EOS # 0.1 10^3/uL (0.0-0.5); EOS % 1.2 % (0.0-3.0); HEMOGLOBIN 13.7 g/dl (13.5-17.5); LYMPH # 1.4 10^3/uL (1.5-5.0); MEAN CORPUSCULAR HGB CONC 33.4 g/dl (32.0-36.5); MEAN CORPUSCULAR VOLUME 86.7 fl (80.0-96.0); MONO # 0.4 10^3/uL (0.0-0.8); MONO % 6.6 % (0.0-5.0); NEUTROPHILS % 68.6 % (36.0-66.0); PLATELET COUNT, AUTOMATED 135 10^3/uL (150-450); RED BLOOD COUNT 4.73 10^6/uL (4.30-6.10); WHITE BLOOD COUNT 5.9 10^3/uL (4.0-10.0)
--- NOTE | 2020-06-29 10:53 | REPVR ---
PROCEDURE INFORMATION: Exam: XR Chest, 1 View Exam date and time: 06/29/2020 10:27 AM Age: 74 years old Clinical indication: Other: CVA TECHNIQUE: Imaging protocol: XR of the chest Views: 1 view. COMPARISON: No relevant prior studies available. FINDINGS: Lungs: Unremarkable. No consolidation. Pleural space: Unremarkable. No pleural effusion. No pneumothorax. Heart/Mediastinum: Unremarkable. No cardiomegaly. Bones/joints: Unremarkable. IMPRESSION: No acute findings. Electronically signed by: Vibha Cristobal On 06/29/2020 10:53:22 AM
[2020-06-29 11:03] LABS: INR 1.13; PARTIAL THROMBOPLASTIN TIME 27.5 SECONDS (24.2-38.5); PROTHROMBIN TIME 14.8 SECONDS (12.5-14.3)
[2020-06-29 11:17] LABS: CK-MB VALUE MASS 1.4 NG/ML (<3.6); CPK CREATINE PHOSPHOKINASE 102 U/L (39-308); MB/CK RELATIVE INDEX 1.37 (< OR =4); TROPONIN I < 0.02 NG/ML (< 0.10)
[2020-06-29 12:28] LABS: ALBUMIN 3.5 GM/DL (3.2-5.2); ALT/SGPT 28 U/L (12-78); BILIRUBIN,DIRECT 0.3 MG/DL (0.0-0.2); BILIRUBIN,TOTAL 1.2 MG/DL (0.2-1.0); NT-PRO BNP 75 PG/ML (<125); TOTAL PROTEIN 7.2 GM/DL (6.4-8.2)
[2020-06-29 16:48] VITALS: BP 140/64
--- NOTE | 2020-06-30 06:35 | ECGEPIP ---
[facility] - ED Test Date: 2020-06-29 Pat Name: NIKUNJ JJ Department: Room: - Gender: Male Bumboater: jeffrey : 1945 Requested By: MOUSTAPHA Trotter Order Number: [id number] Reading MD: Colin Arriaga Measurements Intervals [place] Rate: 67 P: 50 MI: 204 QRS: -39 QRSD: 122 T: -5 QT: 463 QTc: 492 Interpretive Statements SINUS RHYTHM LEFT AXIS DEVIATION POSSIBLE LEFT VENTRICULAR HYPERTROPHY PROLONGED QT INTERVAL SIMILAR TO 08/12/19 Electronically Signed on 06-30-2020 6:34:53 EDT by Colin Arriaga
== END 2020-06-29 16:51 | disposition home or self-care (01) ==
LOC: M ED 10:05
DX: R26.81 Unsteadiness on feet (principal); E11.9 Type 2 diabetes mellitus without complications; K21.9 Gastro-esophageal reflux disease without esophagitis; N40.0 Benign prostatic hyperplasia without lower urinary tract symptoms; Z88.2 Allergy status to sulfonamides; Z79.84 Long term (current) use of oral hypoglycemic drugs; Z79.899 Other long term (current) drug therapy

== ENCOUNTER → 2020-10-01 | Outpatient (CLI) | payer SELFPAY ==
[~2020-10-01] MED LIST changes: +GABA-1171 PO
== END ==
LOC: M LABSMTC 11:10
PROVIDERS: ATTEND Pediatrics
DX: Z20.822 Contact with and (suspected) exposure to COVID-19 (principal)

== ENCOUNTER → 2021-04-22 | Outpatient (CLI) | payer MEDICARE, OTHER ==
[~2021-04-22] MED LIST changes: +GABA-282 PO; -GABA-843 PO; +ISOVUE-300 61% 50ML VIAL As Ordered ONE; +LIDOCAINE 1% MDV 20ML VIAL As Ordered ONE; -PEG1POW PO; +POLY17PO18 PO; +TRIAMCINOLONE ACETONIDE SUSP 40 MG/ML VIAL (J3301) As Ordered ONE
--- NOTE | 2021-04-22 20:02 | REP ---
INDICATION: TROCHANTERIC BURSITIS LT HIP. COMPARISON: None. TECHNIQUE: The procedure was performed under the direct supervision of Dr. Vuong. The benefits and risks including but not limited to pain infection and bleeding and anaphylaxis were explained to the patient and informed consent was obtained. The left femoral neck was localized using fluoroscopic guidance. The skin was prepped and draped in a sterile fashion. 1% lidocaine was used as a local anesthetic. Using fluoroscopic guidance, and last image hold technology, a 22-gauge spinal needle was inserted and advanced to the femoral neck. 0.5 ml of Isovue-300 was injected to verify placement. Six ml of a solution containing 5 ml of 1% Xylocaine and 1 mL of Kenalog 40 mg was injected. The needle was then removed. The patient tolerated the procedure well and there were no immediate complications. Less than 6 seconds of fluoro time was utilized for this procedure. FINDINGS: None IMPRESSION: Fluoro guidance for left hip injection. <Electronically signed by Shaka Lowe > 04/22/21 1626 <Electronically signed by Bowen Vuong > 04/22/21 1958
== END ==
LOC: M RADPRO 11:13
PROVIDERS: ATTEND Orthopaedic Surgery
DX: M70.62 Trochanteric bursitis, left hip (principal)
CPT/HCPCS: 20610; 77002; J3301; Q9967

== ENCOUNTER → 2021-06-14 | Outpatient (CLI) | payer MEDICARE, OTHER ==
--- NOTE | 2021-06-14 16:15 | REP ---
INDICATION: RT HIP TROCHANTERIC BURSITIS. COMPARISON: None. TECHNIQUE: The procedure was performed under the direct supervision of Dr. oWods. The benefits and risks including but not limited to pain infection and bleeding and anaphylaxis were explained to the patient and informed consent was obtained. The right femoral neck was localized using fluoroscopic guidance. The skin was prepped and draped in a sterile fashion. 1% lidocaine was used as a local anesthetic. Using fluoroscopic guidance, and last image hold technology, a 22-gauge spinal needle was inserted and advanced to the femoral neck. 0.5 ml of Isovue-300 was injected to verify placement. Six ml of a solution containing 5 ml of 1% Xylocaine and 1 mL of Kenalog 40 mg was injected. The needle was then removed. The patient tolerated the procedure well and there were no immediate complications. Less than 6 seconds of fluoro time was utilized for this procedure. FINDINGS: None IMPRESSION: Fluoro guidance for right hip injection <Electronically signed by Shaka Lowe > 06/14/21 1500 <Electronically signed by Marek Woods > 06/14/21 [id number]
== END ==
LOC: M RADPRO 13:06
PROVIDERS: ATTEND Orthopaedic Surgery
DX: M70.61 Trochanteric bursitis, right hip (principal)
CPT/HCPCS: 20610; 77002; J3301; Q9967

== ENCOUNTER → 2021-08-14 | Outpatient (CLI) | payer MEDICARE, OTHER ==
--- NOTE | 2021-08-14 16:36 | REP ---
INDICATION: TROCHANTERIC BURSITIS, LEFT HIP. COMPARISON: None. TECHNIQUE: The procedure was performed under the direct supervision of Dr. Vuong. The benefits and risks including but not limited to pain infection and bleeding and anaphylaxis were explained to the patient and informed consent was obtained. The left femoral neck was localized using fluoroscopic guidance. The skin was prepped and draped in a sterile fashion. 1% lidocaine was used as a local anesthetic. Using fluoroscopic guidance, and last image hold technology, a 22-gauge spinal needle was inserted and advanced to the femoral neck. 0.5 ml of Isovue-300 was injected to verify placement. Six ml of a solution containing 5 ml of 1% Xylocaine and 1 mL of Kenalog 40 mg was injected. The needle was then removed. The patient tolerated the procedure well and there were no immediate complications. Less than 6 seconds of fluoro time was utilized for this procedure. FINDINGS: None IMPRESSION: Fluoro guidance for left hip injection <Electronically signed by Shaka Lowe > 08/14/21 1601 <Electronically signed by Bowen Vuong > 08/14/21 [id number]
== END ==
LOC: M RADPRO 13:04
PROVIDERS: ATTEND Orthopaedic Surgery
DX: M70.62 Trochanteric bursitis, left hip (principal)
CPT/HCPCS: 20610; 77002; J3301; Q9967

== ENCOUNTER 2021-09-17 16:14 | Emergency (ER) | payer MEDICARE, OTHER ==
[~2021-09-17] VITALS: Ht 182.9 cm; Wt 113.6 kg
[~2021-09-17 16:14] MED LIST changes: -ISOVUE-300 61% 50ML VIAL As Ordered ONE; -LIDOCAINE 1% MDV 20ML VIAL As Ordered ONE; -TRIAMCINOLONE ACETONIDE SUSP 40 MG/ML VIAL (J3301) As Ordered ONE
[2021-09-17] MEDS ORDERED: LEVO25TA5 PO (16:35)
[2021-09-17] MEDS ORDERED: FINA5TAB2 (16:35)
[2021-09-17] MEDS ORDERED: D31000TA2 (16:35)
[2021-09-17] MEDS ORDERED: diazePAM 10MG/2ML SYRINGE (J3360 PER 5MG) IM ONE (16:50)
--- NOTE | 2021-09-17 17:55 | REPVR ---
PROCEDURE INFORMATION: Exam: CT Thoracic Spine Without Contrast Exam date and time: 09/17/2021 5:12 PM Age: 76 years old Clinical indication: Injury or trauma; Fall; Blunt trauma (contusions or hematomas); Additional info: Back pain after the fall TECHNIQUE: Imaging protocol: Computed tomography images of the thoracic spine without contrast. Radiation optimization: All CT scans at this facility use at least one of these dose optimization techniques: automated exposure control; mA and/or kV adjustment per patient size (includes targeted exams where dose is matched to clinical indication); or iterative reconstruction. COMPARISON: CR PORTABLE CHEST X-RAY 06/29/2020 10:39 AM FINDINGS: Vertebrae: No segmental malalignment of the vertebral bodies. Vertebral body height is maintained. Possibly acute, isolated T2 spinous process fracture No other fracture or destructive process. Discs/Spinal canal/Neural foramina: Multi-level, age-related thoracic degenerative disc disease is present. Soft tissues: No paraspinous soft tissue mass or focal soft tissue edema. IMPRESSION: 1. Age indeterminate but likely subacute isolated T2 spinous process tip fracture. No other thoracic spine fracture deformity. 2. Multilevel degenerative disc disease. Electronically signed by: Anil Ross On 09/17/2021 17:55:10 PM
--- NOTE | 2021-09-17 18:00 | REPVR ---
PROCEDURE INFORMATION: Exam: CT Lumbar Spine Without Contrast Exam date and time: 09/17/2021 5:12 PM Age: 76 years old Clinical indication: Injury or trauma; Fall; Blunt trauma (contusions or hematomas); Additional info: Back pain after the fall TECHNIQUE: Imaging protocol: Computed tomography images of the lumbar spine without contrast. Radiation optimization: All CT scans at this facility use at least one of these dose optimization techniques: automated exposure control; mA and/or kV adjustment per patient size (includes targeted exams where dose is matched to clinical indication); or iterative reconstruction. COMPARISON: No relevant prior studies available. FINDINGS: Vertebrae: No segmental lumbar vertebral malalignment. Vertebral body height and morphology is maintained. No acute fracture or destructive process. Discs/Spinal canal/Neural foramina: Mild degenerative disc height loss with endplate osteophytes and degenerative facet arthropathy in the lower 4 lumbar levels. No high-grade osseous spinal canal narrowing. Vasculature: No dilatation of the imaged distal abdominal aorta. Soft tissues: No significant soft tissue abnormality of the imaged retroperitoneum. IMPRESSION: No fracture or other acute abnormality involving the lumbar spine. Electronically signed by: Anil Ross On 09/17/2021 17:59:56 PM
[2021-09-17] MEDS ORDERED: CYCL7.5T32 PO (18:20)
[2021-09-17 18:35] VITALS: BP 135/63
== END 2021-09-17 18:53 | disposition home or self-care (01) ==
LOC: M ED 16:14 → EDBD 16:14 → M ED 18:53
DX: S39.012A Strain of muscle, fascia and tendon of lower back, initial encounter (principal); X50.0XXA Overexertion from strenuous movement or load, initial encounter; Y92.009 Unspecified place in unspecified non-institutional (private) residence as the place of occurrence of the external cause; Y93.9 Activity, unspecified; Y99.9 Unspecified external cause status; M51.34 Other intervertebral disc degeneration, thoracic region; I25.10 Atherosclerotic heart disease of native coronary artery without angina pectoris; E11.9 Type 2 diabetes mellitus without complications; I10 Essential (primary) hypertension; E78.5 Hyperlipidemia, unspecified; Z88.2 Allergy status to sulfonamides; Z79.899 Other long term (current) drug therapy
CPT/HCPCS: 72128; 72131; 96372; 99284; J3360

== ENCOUNTER 2021-09-22 10:53 | Observation (INO) | payer MEDICARE, OTHER ==
[~2021-09-22] VITALS: Ht 185.4 cm; Wt 111.8 kg
[~2021-09-22 10:53] MED LIST changes: +CYCL7.5T32 PO; +D31000TA2 PO; +LEVO25TA5 PO
[2021-09-22] MEDS ORDERED: DEXTROSE 50% 50 ML SYRINGE IV STA ×2 (11:56→14:13)
[2021-09-22] MEDS ORDERED: DEXTROSE 50% 50 ML SYRINGE As Ordered ONE (11:56)
[2021-09-22] MEDS ORDERED: LEVO50TA5 PO (12:07)
[2021-09-22] MEDS ORDERED: CYCL7.5T32 PO (12:07)
[2021-09-22] MEDS ORDERED: CLOP75TA2 PO (12:08)
[2021-09-22] MEDS ORDERED: AMLO10TA PO (12:12)
[2021-09-22] MEDS ORDERED: FLUO20CA22 PO (12:13)
[2021-09-22] MEDS ORDERED: ATOR40TA75 PO (12:14)
[2021-09-22] MEDS ORDERED: NAPR-885 PO (12:15)
[2021-09-22] MEDS ORDERED: HOME MED LIST COMPLETE! XX SCH (12:20)
[2021-09-22 12:44] LABS: VENOUS HCO3 9.8 MEQ/L (23.0-27.0); VENOUS O2 SATURATION 96.1 % (60.0-80.0); VENOUS PARTIAL PRESSURE O2 107.9 mmHg (30.0-50.0); VENOUS PH 7.051 UNITS (7.330-7.430); VENOUS STANDARD HCO3 10.7 MEQ/L; VENOUS TOTAL CO2 10.9 MEQ/L (24.0-28.0)
[2021-09-22] MEDS ORDERED: NS 1,000 ML IV SCH (12:55)
[2021-09-22 12:57] LABS: HEMOGLOBIN 15.6 g/dl (13.5-17.5); MEAN CORPUSCULAR HEMOGLOBIN 30.1 pg (27.0-33.0); MEAN CORPUSCULAR HGB CONC 32.5 g/dl (32.0-36.5); MEAN CORPUSCULAR VOLUME 92.7 fl (80.0-96.0); RED BLOOD COUNT 5.18 10^6/uL (4.30-6.10); WHITE BLOOD COUNT 21.8 10^3/uL (4.0-10.0)
[2021-09-22 13:23] LABS: RSV AMPLIFICATION NEGATIVE (NEGATIVE)
[2021-09-22] MEDS ORDERED: cefTRIAXone SOD 2 GM in D5W MINI-BAG PLUS 50 ML IV ONE (13:25)
[2021-09-22 13:28] LABS: PLATELET COUNT, AUTOMATED 60 10^3/uL (150-450)
[2021-09-22 13:29] LABS: ALBUMIN 1.8 GM/DL (3.2-5.2); BILIRUBIN,DIRECT 2.2 MG/DL (0.0-0.2); BILIRUBIN,TOTAL 2.7 MG/DL (0.2-1.0); CALCIUM LEVEL 8.9 MG/DL (8.8-10.2); CREATININE FOR GFR 2.8 MG/DL (0.70-1.30); GLOMERULAR FILTRATION RATE 23.6 (>42); POTASSIUM SERUM 3.8 MEQ/L (3.5-5.1); THYROID STIMULATING HORMONE 0.207 uIU/ML (0.358-3.740); TOTAL PROTEIN 5.7 GM/DL (6.4-8.2)
[2021-09-22 13:33] LABS: LYMPHOCYTES 6 % (16-44); MONOCYTES 5 % (0-5); NEUTROPHILS 69 % (28-66)
[2021-09-22 13:34] LABS: TOXIC GRANULATION 2+; TOXIC VACUOLATION 2+
[2021-09-22 13:35] LABS: PLATELET ESTIMATE MARKED DECREASE (NORMAL)
[2021-09-22 13:37] LABS: SPHEROCYTES 3+
[2021-09-22] MEDS ORDERED: NS 3,350 ML in IV 1 EA IV ONE (13:55)
[2021-09-22] MEDS ORDERED: D5W/0.45% SODIUM CHLORIDE 1,000 ML IV SCH (14:15)
[2021-09-22] MEDS ORDERED: NOREPINEPHRINE BITARTRATE 8 MG in D5W 492 ML IV SCH (15:15)
[2021-09-22 17:21] LABS: AMPHETAMINES LEVEL URINE NEGATIVE (NEGATIVE); BARBITURATES URINE NEGATIVE (NEGATIVE); BENZODIAZEPINES URINE NEGATIVE (NEGATIVE); CANNABINOIDS URINE NEGATIVE (NEGATIVE); COCAINE METABOLITE URINE NEGATIVE (NEGATIVE); METHADONE URINE NEGATIVE (NEGATIVE); OPIATES URINE NEGATIVE (NEGATIVE); PHENCYCLIDINE URINE NEGATIVE (NEGATIVE)
[2021-09-22 17:46] VITALS: BP 80/50
[2021-09-22] MEDS ORDERED: MORPHINE 10MG/0.5ML ORAL CONCENTRATE SOLUTION U/D SL PRN (17:50)
[2021-09-22] MEDS ORDERED: SCOPOLAMINE 1MG TRANSDERMAL PATCH TOP PRN (17:50)
[2021-09-22] MEDS ORDERED: LORazepam 2 MG/ML VIAL IV PRN (17:50)
== END 2021-09-22 17:55 | disposition expired ==
LOC: M ED 10:53 → EDBD 10:53 → M ED INP 10:54 → UNDOADMOB 10:54 → M ED 19:37
PROVIDERS: ADMIT Internal Medicine; ATTEND Internal Medicine
DX: N17.9 Acute kidney failure, unspecified (principal); J18.9 Pneumonia, unspecified organism; G93.41 Metabolic encephalopathy; E27.9 Disorder of adrenal gland, unspecified; R00.0 Tachycardia, unspecified; E11.9 Type 2 diabetes mellitus without complications; I11.0 Hypertensive heart disease with heart failure; I50.9 Heart failure, unspecified; Z88.1 Allergy status to other antibiotic agents; Z88.2 Allergy status to sulfonamides; Z79.84 Long term (current) use of oral hypoglycemic drugs; Z79.899 Other long term (current) drug therapy
CPT/HCPCS: 36556; 36600; 51702; 70450; 71045; 71250; 72125; 73080; 74176; 76705; 80047; 80048; 80076; 80307; 82803; 83605; 83930; 84443; 84484; 85025; 85049; 85055; 87040; 87077; 87186; 87631; 93005; 93041; 96365; 96366; 96368; 99291; 99292; G0378; J0696